=== PATIENT | female | born 1965 | race Caucasian/White ===

== ENCOUNTER 2016-04-14 09:43 | Outpatient (RCR) | payer OTHER ==
[~2016-04-14 09:43] MED LIST: ALEN35TA20 PO; AMLO2.5T; AMLO5TAB2 PO; ARPZ20T PO; ASCO500T20 PO; CALC-671; CHOL2000 PO; CLOT10TR11 PO; CPR500T PO; CRAN250C; DALF10TA PO; DULO60CA6; DVL500TEC PO; E400C PO; EST45C VG; ESTR0.9T PO; ESZO3TAB30; FESO8TAB PO; FLUC200T45 PO; FRS325T; GBPN300C PO; HYDR1TAB PO; HYDR1TAB66 PO; HYDROMORPHONE; LEVO500T69 PO; LEVO750T6 PO; LMT25T PO; LORA0.5T; LVT.1T PO; METH1TAB46 PO; METH4TAB PO; MULT-608; NACL30SP2 NS; NITR100C3 PO; OPIU1SUP RC; OXYC-12 PO; PANT40SU PO; PNT40TEC; POTA20TA15 PO; PRM25T PO; REBIF; RNT150T PO; SOLI10TA4 PO; TML.25OP OP; TMZP15C PO; TOLTA4; VNL75CCR; ZLP10T PO; [UNRECOGNIZED DRUG - CODE] PO
[2016-04-14 10:11] LABS: BASOPHILS % (AUTO) 0 % (0-10); EOSINOPHILS # (AUTO) 0.2 10^3/uL (0.0-0.3); EOSINOPHILS % (AUTO) 5 % (0-10); LYMPHOCYTES # (AUTO) 0.2 X 10^3 (1.0-4.0); LYMPHOCYTES % (AUTO) 7 % (12-44); MEAN CORPUSCULAR HEMOGLOBIN 31 PG (25-34); MEAN CORPUSCULAR HGB CONC 34 G/DL (32-36); MEAN CORPUSCULAR VOLUME 91 FL (80-99); MEAN PLATELET VOLUME 8.7 FL (7.4-10.4); MONOCYTES # (AUTO) 0.3 X 10^3 (0.0-1.0); MONOCYTES % (AUTO) 10 % (0-12); NEUTROPHILS # (AUTO) 2.5 X 10^3 (1.8-7.8); NEUTROPHILS % (AUTO) 77 % (42-75); PLATELET COUNT 252 10^3/uL (130-400); RED BLOOD COUNT 3.88 10^6/uL (4.35-5.85); RED CELL DISTRIBUTION WIDTH 12.6 % (10.0-14.5); WHITE BLOOD COUNT 3.2 10^3/uL (4.3-11.0)
[2016-04-14 10:34] LABS: ALANINE AMINOTRANSFERASE 33 U/L (0-55); ALBUMIN 3.9 G/DL (3.2-4.5); ANION GAP 9 MMOL/L (5-14); ASPARTATE AMINO TRANSFERASE 21 U/L (5-34); BILIRUBIN,TOTAL 0.3 MG/DL (0.1-1.0); BLOOD UREA NITROGEN 12 MG/DL (7-18); BUN/CREATININE RATIO 17; CALCIUM 9.2 MG/DL (8.5-10.1); CARBON DIOXIDE 23 MMOL/L (21-32); CHLORIDE 106 MMOL/L (98-107); GFR ESTIMATED > 60; GLUCOSE 110 MG/DL (70-105); POTASSIUM 4.3 MMOL/L (3.6-5.0); SODIUM 138 MMOL/L (135-145); TOTAL PROTEIN 6.4 G/DL (6.4-8.2)
== END 2016-07-13 | disposition home or self-care (01) ==
LOC: ONC 09:43
PROVIDERS: ATTEND Internal Medicine Hematology & Oncology
DX: Z08 Encounter for follow-up examination after completed treatment for malignant neoplasm (principal); Z85.3 Personal history of malignant neoplasm of breast; G35 Multiple sclerosis; I10 Essential (primary) hypertension; D69.3 Immune thrombocytopenic purpura; N31.9 Neuromuscular dysfunction of bladder, unspecified; B37.3 Candidiasis of vulva and vagina; Z90.79 Acquired absence of other genital organ(s); Z92.3 Personal history of irradiation; Z92.21 Personal history of antineoplastic chemotherapy; Z79.899 Other long term (current) drug therapy
CPT/HCPCS: 36415; 80053; 85025; 86300; 99213

== ENCOUNTER → 2016-07-21 | Outpatient (CLI) | payer OTHER ==
--- NOTE | 2016-07-21 14:22 | Diagnostic Imaging Report ---
EXAMINATION: Bilateral diagnostic mammogram with a Computer Aided Detection (CAD) system. INDICATION: Followup asymmetry along the far posterior aspect of the right breast and central aspect of the left breast. FINDINGS: The breasts are composed of heterogeneously dense parenchyma which may decrease mammographic sensitivity. There is evidence of prior lumpectomy in the right breast. There is no mass, architectural distortion, or suspicious calcification. The previously seen asymmetries bilaterally appear resolved with no suspicious mass, architectural distortion, or suspicious calcification identified. IMPRESSION: The previously seen asymmetries appear resolved at this time. No suspicious mammographic findings. An ultrasound followup is pending. ACR BI-RADS Category 0: Incomplete. (Needs additional imaging evaluation). Result letter will be mailed to the patient. Note: At least 10% of breast cancer is not imaged by mammography. Dictated by: Dictated on workstation # [id number]
--- NOTE | 2016-07-21 14:25 | Diagnostic Imaging Report ---
EXAMINATION: Bilateral breast ultrasound. INDICATION: Bilateral mammographic asymmetries and a lesion seen at the lumpectomy site at the 6 o'clock zone of the right breast. COMPARISON: 01/30/2016. FINDINGS: In the right breast at the 6 o'clock zone, a 2.8 x 1 x 2.3 cm lesion with mixed echogenicity and central fluid is seen, likely related to a seroma and scarring. It is without significant change from the prior exam. This is located at the 6 o'clock zone in the previous lumpectomy site with no other lesions seen in the right breast. The left breast demonstrates no underlying lesion. The four-quadrants and the retroareolar region in both breasts were scanned. IMPRESSION: The lumpectomy site abnormality is stable and is likely related to post operative changes. Another ultrasound followup is recommended when the patient is due for her next bilateral mammogram in July 2017. ACR BI-RADS Category 3: Probably benign findings. Dictated by: Dictated on workstation # [id number]
== END ==
LOC: RAD 09:03
PROVIDERS: ATTEND Internal Medicine Hematology & Oncology
DX: R92.8 Other abnormal and inconclusive findings on diagnostic imaging of breast (principal); C50.911 Malignant neoplasm of unspecified site of right female breast
CPT/HCPCS: 77066

== ENCOUNTER 2016-08-04 09:30 | Outpatient (RCR) | payer OTHER ==
[2016-08-04 10:04] LABS: BASOPHILS % (AUTO) 0 % (0-10); EOSINOPHILS # (AUTO) 0.3 10^3/uL (0.0-0.3); EOSINOPHILS % (AUTO) 8 % (0-10); LYMPHOCYTES # (AUTO) 0.4 X 10^3 (1.0-4.0); LYMPHOCYTES % (AUTO) 11 % (12-44); MEAN CORPUSCULAR HEMOGLOBIN 31 PG (25-34); MEAN CORPUSCULAR HGB CONC 34 G/DL (32-36); MEAN CORPUSCULAR VOLUME 90 FL (80-99); MEAN PLATELET VOLUME 8.8 FL (7.4-10.4); MONOCYTES # (AUTO) 0.4 X 10^3 (0.0-1.0); MONOCYTES % (AUTO) 12 % (0-12); NEUTROPHILS # (AUTO) 2.4 X 10^3 (1.8-7.8); NEUTROPHILS % (AUTO) 70 % (42-75); PLATELET COUNT 261 10^3/uL (130-400); RED BLOOD COUNT 4.01 10^6/uL (4.35-5.85); RED CELL DISTRIBUTION WIDTH 12.5 % (10.0-14.5); WHITE BLOOD COUNT 3.4 10^3/uL (4.3-11.0)
[2016-08-04 10:59] LABS: ALANINE AMINOTRANSFERASE 34 U/L (0-55); ALBUMIN 3.9 G/DL (3.2-4.5); ANION GAP 9 MMOL/L (5-14); ASPARTATE AMINO TRANSFERASE 27 U/L (5-34); BILIRUBIN,TOTAL 0.3 MG/DL (0.1-1.0); BLOOD UREA NITROGEN 13 MG/DL (7-18); BUN/CREATININE RATIO 17; CALCIUM 9.2 MG/DL (8.5-10.1); CARBON DIOXIDE 25 MMOL/L (21-32); CHLORIDE 107 MMOL/L (98-107); CREATININE SERUM 0.77 MG/DL (0.60-1.30); GFR ESTIMATED > 60; GLUCOSE 94 MG/DL (70-105); POTASSIUM 4.5 MMOL/L (3.6-5.0); SODIUM 141 MMOL/L (135-145); TOTAL PROTEIN 6.6 G/DL (6.4-8.2)
== END 2016-11-02 | disposition home or self-care (01) ==
LOC: ONC 09:30
PROVIDERS: ATTEND Internal Medicine Hematology & Oncology
DX: Z08 Encounter for follow-up examination after completed treatment for malignant neoplasm (principal); Z85.3 Personal history of malignant neoplasm of breast; G35 Multiple sclerosis; I10 Essential (primary) hypertension; D69.3 Immune thrombocytopenic purpura; N31.9 Neuromuscular dysfunction of bladder, unspecified; B37.3 Candidiasis of vulva and vagina; Z90.79 Acquired absence of other genital organ(s); Z92.3 Personal history of irradiation; Z92.21 Personal history of antineoplastic chemotherapy; Z79.899 Other long term (current) drug therapy
CPT/HCPCS: 36415; 80053; 85025; 86300; 99213

== ENCOUNTER 2017-01-19 09:37 | Outpatient (RCR) | payer OTHER ==
[2017-01-19 10:05] LABS: BASOPHILS % (AUTO) 0 % (0-10); EOSINOPHILS # (AUTO) 0.2 10^3/uL (0.0-0.3); EOSINOPHILS % (AUTO) 5 % (0-10); LYMPHOCYTES # (AUTO) 0.3 X 10^3 (1.0-4.0); LYMPHOCYTES % (AUTO) 11 % (12-44); MEAN CORPUSCULAR HEMOGLOBIN 31 PG (25-34); MEAN CORPUSCULAR HGB CONC 35 G/DL (32-36); MEAN CORPUSCULAR VOLUME 91 FL (80-99); MEAN PLATELET VOLUME 8.6 FL (7.4-10.4); MONOCYTES # (AUTO) 0.3 X 10^3 (0.0-1.0); MONOCYTES % (AUTO) 11 % (0-12); NEUTROPHILS # (AUTO) 2.1 X 10^3 (1.8-7.8); NEUTROPHILS % (AUTO) 73 % (42-75); PLATELET COUNT 242 10^3/uL (130-400); RED BLOOD COUNT 3.78 10^6/uL (4.35-5.85); RED CELL DISTRIBUTION WIDTH 12.3 % (10.0-14.5); WHITE BLOOD COUNT 2.8 10^3/uL (4.3-11.0)
[2017-01-19 10:54] LABS: ALANINE AMINOTRANSFERASE 30 U/L (0-55); ALBUMIN 3.8 GM/DL (3.2-4.5); ANION GAP 6 MMOL/L (5-14); ASPARTATE AMINO TRANSFERASE 21 U/L (5-34); BILIRUBIN,TOTAL 0.3 MG/DL (0.1-1.0); BLOOD UREA NITROGEN 11 MG/DL (7-18); BUN/CREATININE RATIO 15; CALCIUM 8.9 MG/DL (8.5-10.1); CARBON DIOXIDE 27 MMOL/L (21-32); CHLORIDE 107 MMOL/L (98-107); CREATININE SERUM 0.75 MG/DL (0.60-1.30); GFR ESTIMATED > 60; GLUCOSE 105 MG/DL (70-105); POTASSIUM 3.9 MMOL/L (3.6-5.0); SODIUM 140 MMOL/L (135-145); TOTAL PROTEIN 6.4 GM/DL (6.4-8.2)
== END 2017-01-26 09:28 | disposition home or self-care (01) ==
LOC: ONC 09:37
PROVIDERS: ATTEND Internal Medicine Hematology & Oncology
DX: Z08 Encounter for follow-up examination after completed treatment for malignant neoplasm (principal); Z85.3 Personal history of malignant neoplasm of breast; G35 Multiple sclerosis; I10 Essential (primary) hypertension; D69.3 Immune thrombocytopenic purpura; N31.9 Neuromuscular dysfunction of bladder, unspecified; B37.3 Candidiasis of vulva and vagina; Z90.79 Acquired absence of other genital organ(s); Z92.3 Personal history of irradiation; Z92.21 Personal history of antineoplastic chemotherapy; Z79.899 Other long term (current) drug therapy
CPT/HCPCS: 36415; 80053; 85025; 99213

== ENCOUNTER 2017-03-20 09:04 | Outpatient (RCR) | payer OTHER ==
[~2017-03-20 09:04] MED LIST changes: -CATHETER FLUSH 10 ML SYR IV PRN; -IOHEXOL 350 MG/ML 100 ML (OMNIPAQUE 350) VIAL IV ONE; -NS 100 ML (IVPB) BAG IV ONE
[2017-03-20 09:40] LABS: BASOPHILS % (AUTO) 0 % (0-10); EOSINOPHILS # (AUTO) 0.1 10^3/uL (0.0-0.3); EOSINOPHILS % (AUTO) 4 % (0-10); HEMATOCRIT 37 % (35-52); HEMOGLOBIN 12.8 G/DL (11.5-16.0); LYMPHOCYTES # (AUTO) 0.3 X 10^3 (1.0-4.0); LYMPHOCYTES % (AUTO) 9 % (12-44); MEAN CORPUSCULAR HEMOGLOBIN 32 PG (25-34); MEAN CORPUSCULAR HGB CONC 35 G/DL (32-36); MEAN CORPUSCULAR VOLUME 91 FL (80-99); MONOCYTES # (AUTO) 0.4 X 10^3 (0.0-1.0); MONOCYTES % (AUTO) 12 % (0-12); NEUTROPHILS # (AUTO) 2.7 X 10^3 (1.8-7.8); NEUTROPHILS % (AUTO) 76 % (42-75); PLATELET COUNT 222 10^3/uL (130-400); RED BLOOD COUNT 4.06 10^6/uL (4.35-5.85); RED CELL DISTRIBUTION WIDTH 12.1 % (10.0-14.5); WHITE BLOOD COUNT 3.6 10^3/uL (4.3-11.0)
[2017-03-20 10:11] LABS: ALANINE AMINOTRANSFERASE 38 U/L (0-55); ALBUMIN 3.9 GM/DL (3.2-4.5); ALKALINE PHOSPHATASE 87 U/L (40-136); BILIRUBIN,TOTAL 0.4 MG/DL (0.1-1.0); BUN/CREATININE RATIO 17; CALCIUM 9.3 MG/DL (8.5-10.1); CARBON DIOXIDE 26 MMOL/L (21-32); CHLORIDE 105 MMOL/L (98-107); CREATININE SERUM 0.71 MG/DL (0.60-1.30); GFR ESTIMATED > 60; GLUCOSE 94 MG/DL (70-105); SODIUM 140 MMOL/L (135-145); TOTAL PROTEIN 6.7 GM/DL (6.4-8.2)
== END 2017-06-18 | disposition home or self-care (01) ==
LOC: ONC 09:04
PROVIDERS: ATTEND Internal Medicine Hematology & Oncology
DX: Z08 Encounter for follow-up examination after completed treatment for malignant neoplasm (principal); Z85.3 Personal history of malignant neoplasm of breast; D69.3 Immune thrombocytopenic purpura; G35 Multiple sclerosis; I10 Essential (primary) hypertension; N31.9 Neuromuscular dysfunction of bladder, unspecified; Z90.79 Acquired absence of other genital organ(s); Z92.3 Personal history of irradiation; Z92.21 Personal history of antineoplastic chemotherapy; Z79.899 Other long term (current) drug therapy
CPT/HCPCS: 80053; 85025

== ENCOUNTER → 2017-03-20 | Outpatient (CLI) | payer OTHER ==
[~2017-03-20] MED LIST changes: +CATHETER FLUSH 10 ML SYR IV PRN; +IOHEXOL 350 MG/ML 100 ML (OMNIPAQUE 350) VIAL IV ONE; +NS 100 ML (IVPB) BAG IV ONE
--- NOTE | 2017-03-20 11:25 | Diagnostic Imaging Report ---
PROCEDURE: CT chest with contrast only. TECHNIQUE: Multiple contiguous axial images were obtained through the chest after administration of intravenous contrast. INDICATION: Breast cancer. Right breast pain. COMPARISON: 09/04/2009. FINDINGS: The right breast demonstrates suggestion of a chronic seroma in the inferior aspect. This is slightly smaller compared to the 2010 exam. There is no mediastinal mass or significantly enlarged lymph node. No hilar lymphadenopathy. No axillary lymphadenopathy. The heart size is normal. The thoracic aorta is normal in caliber. There is no pleural or pericardial effusion. There are nonspecific mild groundglass opacities seen in the upper lobes which could relate to mild atelectasis or pneumonitis. No significant consolidation, mass, or suspicious pulmonary nodule is seen otherwise. There is a small to moderate hiatal hernia. Diffuse hepatic steatosis is seen. The osseous structures appear grossly unremarkable. IMPRESSION: 1. Chronic seroma in the inferior aspect of the right breast is suggested, smaller compared to the 2010 exam. A dedicated diagnostic mammogram and ultrasound of the right breast would be recommended to evaluate the right breast firmness. 2. Small patchy areas of groundglass opacities in the upper lobes are probably related to atelectasis or mild nonspecific pneumonitis. 3. Hepatic steatosis. Dictated by: Dictated on workstation # [id number]
== END ==
LOC: RAD 10:05
PROVIDERS: ATTEND Internal Medicine Hematology & Oncology
DX: C50.919 Malignant neoplasm of unspecified site of unspecified female breast (principal); K76.0 Fatty (change of) liver, not elsewhere classified
CPT/HCPCS: 71260

== ENCOUNTER 2017-06-21 23:59 | Emergency (ER) | payer OTHER ==
[~2017-06-21] VITALS: Ht 167.6 cm; Wt 74.8 kg
[2017-06-22] MEDS ORDERED: AMIT10TA6 (00:12)
[2017-06-22] MEDS ORDERED: AMIT100T2 (00:12)
[2017-06-22] MEDS ORDERED: OLAN5TAB25 (00:12)
--- NOTE | 2017-06-22 00:18 | ED Psychosocial ---
General Chief Complaint: Overdose Stated Complaint: POSS OVERDOSE EVENING MED Source: patient Exam Limitations: no limitations History of Present Illness Date Seen by Provider: Jun 22, 2017 Time Seen by Provider: 00:07 Initial Comments Patient presents to the ER with her significant other chief complaint that just prior to arrival she thinks she might of taken a second dose of her amitriptyline. She typically takes 200 mg at night for sleep since she was having a hard time sleeping she says she went ahead and took another dose. She' s not 100% certain that she took twice the dose however. She denies low mood, suicidal ideation, suicide attempts in the past. She says she just wasn't thinking and couldn't remember should taken or not but after they counted her pills but think that she might of taken a dose prior. She's not having any nausea, dizziness, jitteriness. She does have a history of multiple sclerosis for several years and has an indwelling Ruano catheter. Allergies and Home Medications Allergies Coded Allergies: fentanyl (Verified Allergy, Intermediate, 10/09/12) Sulfa (Sulfonamide Antibiotics) (Unverified Allergy, Unknown, 09/04/09) pregabalin (Verified Allergy, Unknown, MS ATTACK, 03/20/17) quetiapine (Verified Allergy, Unknown, 07/29/05) Home Medications Amitriptyline HCl 10 Mg Tablet, (Reported) Amitriptyline HCl 100 Mg Tablet, (Reported) Ascorbic Acid 500 Mg Tablet, 500 MG PO TID, (Reported) Calcium Carbonate/Vitamin D3 1 Each Tablet, (Reported) Cholecalciferol 2,000 Unit Capsule, 2,000 UNIT PO DAILY, (Reported) Estrogens,Conjugated 0.9 Mg Tablet, 0.9 MG PO DAILY, (Reported) Fingolimod Hydrochloride 0.5 Mg Capsule, 0.5 MG PO DAILY, (Reported) Multivitamins 1 Tab Tablet, (Reported) Olanzapine 5 Mg Tablet, (Reported) Pantoprazole Sodium 40 Mg Suspdr.pkt, 40 MG PO DAILY, (Reported) Constitutional: No chills, No diaphoresis EENTM: No eye pain, No tearing Respiratory: No cough, No short of breath Cardiovascular: No chest pain, No palpitations Gastrointestinal: No abdominal pain, No constipation, No diarrhea, No nausea Genitourinary: No discharge, No dysuria : No Past Alrstij-Abcbtw-Mbpcrg Hx Patient Social History Recent Foreign Travel: No Contact w/Someone Who Travel: No Immunizations Up To Date Date of Pneumonia Vaccine: May 08, 2009 Date of Influenza Vaccine: Jan 20, 2012 Reproductive System Hx Reproductive Disorders: No Sexually Transmitted Disease: 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 Genitourinary Genitourinary Disorders: UTI-Chronic Cancer Cancer: Breast Psychosocial Behavioral Health Disorders: Bipolar Physical Exam Vital Signs Vital Signs - First Documented 06/22/17 00:05 Temp 98.1 Pulse 96 Resp 18 B/P (MAP) 139/89 (106) Pulse Ox 99 O2 Delivery Room Air Capillary Refill : General Appearance: WD/WN, other (anxious) HEENT: PERRL/EOMI, pharynx normal, other (right eye amblyopia) Neck: full range of motion, normal inspection Respiratory: no respiratory distress, no accessory muscle use Cardiovascular: no edema, no JVD Peripheral Pulses: 2+ Radial Pulses (R), 2+ Radial Pulses (L) Gastrointestinal: non tender, soft Extremities: normal inspection, no pedal edema Neurologic/Psychiatric: alert, normal mood/affect, oriented x 3 Behavior/Eye Contact: cooperative, good eye contact, normal speech, avoids eye contact Thoughts/Hallucinations: normal thought pattern, no apparent hallucination Skin: normal color, warm/dry Progress/Results/Core Measures Results/Orders My Orders Orders - MAYUR BEJARANO Ekg Tracing (06/22/17 00:07) Ekg Tracing (06/22/17 01:53) Vital Signs/I&O Vital Sign - Last 12Hours 06/22/17 06/22/17 00:05 01:15 Temp 98.1 Pulse 96 89 Resp 18 17 B/P (MAP) 139/89 (106) 140/84 (102) Pulse Ox 99 97 O2 Delivery Room Air Room Air Progress Note : Time: 00:19 Progress Note Likely an accidental over ingestion. We have called poison control and their recommendation is to get an EKG and the QRS is less than 100 monitor her for seizures for a period of 2 hours. If it goes above 100 give 2 A of bicarbonate over 10 minutes and then recheck EKG. The patient's QRS is 90 ms. ECG Initial ECG Impression Date: Jun 22, 2017 Initial ECG Impression Time: 00:09 Initial ECG Rate: 91 Initial ECG Rhythm: Normal Sinus Initial ECG Intervals: QRS (90) Initial ECG Impression: Normal Initial ECG Comparisson: No Previous ECG Available Comment No T-wave elevation or depression. No QRS prolongation. EKG : EKG Time: 01:54 Rate: 89 Rhythm: Normal Sinus Intervals: Normal ECG Comparisson: Unchanged ECG Impression: Normal Comment QRS duration of 92 ms. No T-wave elevation or depression. Departure Impression Impression: Primary Impression: TCA (tricyclic antidepressant) overdose of undetermined intent Qualified Codes: T43.014A - Poisoning by tricyclic antidepressants, undetermined, initial encounter Disposition: HOME, SELF-CARE Condition: Stable Departure-Patient Inst. Decision time for Depature: 02:06 Referrals: VIVIAN CAMARA MD (PCP/Family) Primary Care Physician Patient Instructions: Amitriptyline Add. Discharge Instructions: Get some rest tonight. Drink plenty of fluids. Follow-up with your primary care physician as needed for any new symptoms. All discharge instructions reviewed with patient and/or family. Voiced understanding. Copy Copies To 1: VIVIAN CAMARA MD, TITUS J Jun 22, 2017 00:18
[2017-06-22 01:15] VITALS: BP 140/84
[2017-06-22 02:12] VITALS: BP 140/86
== END 2017-06-22 02:09 | disposition home or self-care (01) ==
LOC: EDUNIT# 23:59 → ER 06-22 00:02
DX: T43.014A Poisoning by tricyclic antidepressants, undetermined, initial encounter (principal); F31.9 Bipolar disorder, unspecified; Z90.710 Acquired absence of both cervix and uterus; Z88.2 Allergy status to sulfonamides; Z88.1 Allergy status to other antibiotic agents; Z88.8 Allergy status to other drugs, medicaments and biological substances
CPT/HCPCS: 93005

== ENCOUNTER → 2017-07-27 | Outpatient (CLI) | payer OTHER ==
[~2017-07-27] MED LIST changes: +AMIT100T2; +AMIT10TA6; +OLAN5TAB25
--- NOTE | 2017-07-27 19:37 | Diagnostic Imaging Report ---
INDICATION: Right breast carcinoma, status post lumpectomy. The study is performed for followup. COMPARISON: Correlation is made with prior studies from 07/21/2016 and 01/08/2016. The current study was also evaluated with a Computer Aided Detection (CAD) system. FINDINGS: Both breasts remain heterogeneously dense, limiting the sensitivity of mammography. The overall parenchymal pattern is stable. No dominant mass or malignant appearing microcalcifications are seen. The axillae are unremarkable. IMPRESSION: Stable bilateral mammograms with no mammographic features suspicious for malignancy identified. Patient will undergo right breast ultrasound to further evaluate previously seen postoperative seroma in the 6 o'clock location of the right breast. ACR BI-RADS Category 0: Incomplete. (Needs additional imaging evaluation). Result letter will be mailed to the patient. Note: At least 10% of breast cancer is not imaged by mammography. Dictated by: Dictated on workstation # [id number]
--- NOTE | 2017-07-27 19:50 | Diagnostic Imaging Report ---
INDICATION: Status post right lumpectomy and seroma. Study is performed for followup. Correlation is made with prior ultrasound from 07/21/2016. Sonographic interrogation of the 6 o'clock location of the right breast was performed, correlating with the lumpectomy site. Mixed echogenicity with central fluid at this location is again noted but appears smaller when compared with prior exam at approximately 1.9 x 2.1 cm compared with 2.5 x 2.3 cm. No new abnormality is identified. IMPRESSION: Decrease in size of the mixed echogenicity at the 6 o'clock location of the right breast when compared with examination one year earlier, most suggestive of a postoperative seroma. Continued followup could be obtained to confirm clearing. ACR BI-RADS Category 3: Probably benign findings. Dictated by: Dictated on workstation # [id number]
== END ==
LOC: RAD 09:36
PROVIDERS: ATTEND Internal Medicine Hematology & Oncology
DX: N64.89 Other specified disorders of breast (principal); Z85.3 Personal history of malignant neoplasm of breast; Z90.12 Acquired absence of left breast and nipple
CPT/HCPCS: 77066

== ENCOUNTER 2017-08-03 10:10 | Outpatient (RCR) | payer OTHER ==
[2017-08-03 10:25] LABS: BASOPHILS % (AUTO) 0 % (0-10); EOSINOPHILS # (AUTO) 0.2 10^3/uL (0.0-0.3); EOSINOPHILS % (AUTO) 8 % (0-10); HEMATOCRIT 37 % (35-52); HEMOGLOBIN 12.8 G/DL (11.5-16.0); LYMPHOCYTES # (AUTO) 0.2 X 10^3 (1.0-4.0); LYMPHOCYTES % (AUTO) 10 % (12-44); MEAN CORPUSCULAR HEMOGLOBIN 32 PG (25-34); MEAN CORPUSCULAR HGB CONC 35 G/DL (32-36); MEAN CORPUSCULAR VOLUME 92 FL (80-99); MEAN PLATELET VOLUME 9.5 FL (7.4-10.4); MONOCYTES # (AUTO) 0.3 X 10^3 (0.0-1.0); MONOCYTES % (AUTO) 15 % (0-12); NEUTROPHILS # (AUTO) 1.2 X 10^3 (1.8-7.8); NEUTROPHILS % (AUTO) 66 % (42-75); PLATELET COUNT 218 10^3/uL (130-400); RED BLOOD COUNT 3.98 10^6/uL (4.35-5.85); RED CELL DISTRIBUTION WIDTH 11.9 % (10.0-14.5); WHITE BLOOD COUNT 1.8 10^3/uL (4.3-11.0)
[2017-08-03 10:47] LABS: ALANINE AMINOTRANSFERASE 32 U/L (0-55); ALKALINE PHOSPHATASE 106 U/L (40-136); BILIRUBIN,TOTAL 0.4 MG/DL (0.1-1.0); BUN/CREATININE RATIO 13; CALCIUM 9.4 MG/DL (8.5-10.1); CARBON DIOXIDE 25 MMOL/L (21-32); CHLORIDE 110 MMOL/L (98-107); CREATININE SERUM 0.71 MG/DL (0.60-1.30); GFR ESTIMATED > 60; GLUCOSE 111 MG/DL (70-105); POTASSIUM 4.4 MMOL/L (3.6-5.0); SODIUM 140 MMOL/L (135-145); TOTAL PROTEIN 6.8 GM/DL (6.4-8.2)
== END 2017-11-01 | disposition home or self-care (01) ==
LOC: ONC 10:10
PROVIDERS: ATTEND Internal Medicine Hematology & Oncology
DX: Z08 Encounter for follow-up examination after completed treatment for malignant neoplasm (principal); Z85.3 Personal history of malignant neoplasm of breast; G35 Multiple sclerosis; D72.819 Decreased white blood cell count, unspecified; R92.8 Other abnormal and inconclusive findings on diagnostic imaging of breast; I10 Essential (primary) hypertension; K21.9 Gastro-esophageal reflux disease without esophagitis; N31.9 Neuromuscular dysfunction of bladder, unspecified; D69.59 Other secondary thrombocytopenia; F31.9 Bipolar disorder, unspecified
CPT/HCPCS: 80053; 85025; 99213

== ENCOUNTER 2017-09-03 06:00 | Outpatient (RCR) | payer OTHER | END 2017-09-05 | disposition home or self-care (01) | LOC: CR3 06:00 | PROVIDERS: ATTEND Internal Medicine | DX: Z29.8 Encounter for other specified prophylactic measures (principal) ==

== ENCOUNTER 2017-10-05 09:57 | Outpatient (RCR) | payer OTHER | END 2017-10-07 | disposition home or self-care (01) | LOC: CR3 09:57 | PROVIDERS: ATTEND Internal Medicine | DX: Z29.8 Encounter for other specified prophylactic measures (principal) ==

== ENCOUNTER 2017-11-05 06:00 | Outpatient (RCR) | payer OTHER | END 2017-11-07 | disposition home or self-care (01) | LOC: CR3 06:00 | PROVIDERS: ATTEND Internal Medicine | DX: Z29.8 Encounter for other specified prophylactic measures (principal) ==

== ENCOUNTER → 2017-12-01 | Outpatient (RCR) | payer OTHER ==
[2017-12-01 09:10] LABS: BASOPHILS % (AUTO) 1 % (0-10); EOSINOPHILS # (AUTO) 0.2 10^3/uL (0.0-0.3); EOSINOPHILS % (AUTO) 4 % (0-10); HEMATOCRIT 36 % (35-52); HEMOGLOBIN 12.6 G/DL (11.5-16.0); LYMPHOCYTES # (AUTO) 0.3 X 10^3 (1.0-4.0); LYMPHOCYTES % (AUTO) 8 % (12-44); MEAN CORPUSCULAR HEMOGLOBIN 32 PG (25-34); MEAN CORPUSCULAR HGB CONC 35 G/DL (32-36); MEAN CORPUSCULAR VOLUME 90 FL (80-99); MEAN PLATELET VOLUME 8.8 FL (7.4-10.4); MONOCYTES # (AUTO) 0.4 X 10^3 (0.0-1.0); MONOCYTES % (AUTO) 12 % (0-12); NEUTROPHILS # (AUTO) 2.8 X 10^3 (1.8-7.8); NEUTROPHILS % (AUTO) 75 % (42-75); PLATELET COUNT 295 10^3/uL (130-400); RED BLOOD COUNT 3.96 10^6/uL (4.35-5.85); RED CELL DISTRIBUTION WIDTH 11.9 % (10.0-14.5); WHITE BLOOD COUNT 3.7 10^3/uL (4.3-11.0)
[2017-12-01 09:32] LABS: ALANINE AMINOTRANSFERASE 31 U/L (0-55); ALBUMIN 4.1 GM/DL (3.2-4.5); ALKALINE PHOSPHATASE 102 U/L (40-136); BILIRUBIN,TOTAL 0.3 MG/DL (0.1-1.0); BUN/CREATININE RATIO 20; CALCIUM 10.3 MG/DL (8.5-10.1); CARBON DIOXIDE 24 MMOL/L (21-32); CHLORIDE 105 MMOL/L (98-107); CREATININE SERUM 0.79 MG/DL (0.60-1.30); GFR ESTIMATED > 60; GLUCOSE 105 MG/DL (70-105); POTASSIUM 4.7 MMOL/L (3.6-5.0); SODIUM 139 MMOL/L (135-145); TOTAL PROTEIN 7.1 GM/DL (6.4-8.2)
== END | disposition home or self-care (01) ==
LOC: ONC 08:58
PROVIDERS: ATTEND Internal Medicine Hematology & Oncology
DX: Z08 Encounter for follow-up examination after completed treatment for malignant neoplasm (principal); Z85.3 Personal history of malignant neoplasm of breast; G35 Multiple sclerosis; D72.819 Decreased white blood cell count, unspecified; R92.8 Other abnormal and inconclusive findings on diagnostic imaging of breast; I10 Essential (primary) hypertension; K21.9 Gastro-esophageal reflux disease without esophagitis; N31.9 Neuromuscular dysfunction of bladder, unspecified; D69.59 Other secondary thrombocytopenia; F31.9 Bipolar disorder, unspecified
CPT/HCPCS: 36415; 80053; 85025; 99213

== ENCOUNTER 2017-12-07 10:19 | Outpatient (RCR) | payer OTHER | END 2017-12-09 | disposition home or self-care (01) | LOC: CR3 10:19 | PROVIDERS: ATTEND Internal Medicine | DX: Z29.8 Encounter for other specified prophylactic measures (principal) ==

== ENCOUNTER 2018-01-01 06:22 | Outpatient (RCR) | payer OTHER | END 2018-01-09 | disposition home or self-care (01) | LOC: CR3 06:22 | PROVIDERS: ATTEND Internal Medicine | DX: Z29.8 Encounter for other specified prophylactic measures (principal) ==

== ENCOUNTER 2018-02-08 10:25 | Outpatient (RCR) | payer OTHER | END 2018-02-10 | disposition home or self-care (01) | LOC: CR3 10:25 | PROVIDERS: ATTEND Internal Medicine | DX: Z29.8 Encounter for other specified prophylactic measures (principal) ==

== ENCOUNTER 2018-03-11 06:00 | Outpatient (RCR) | payer OTHER | END 2018-03-13 | disposition home or self-care (01) | LOC: CR3 06:00 | PROVIDERS: ATTEND Internal Medicine | DX: Z29.8 Encounter for other specified prophylactic measures (principal) ==

== ENCOUNTER 2018-04-15 10:00 | Outpatient (RCR) | payer OTHER | END 2018-04-17 | disposition home or self-care (01) | LOC: CR3 10:00 | PROVIDERS: ATTEND Internal Medicine | DX: Z29.8 Encounter for other specified prophylactic measures (principal) ==

== ENCOUNTER 2018-05-13 06:00 | Outpatient (RCR) | payer OTHER | END 2018-05-19 | disposition home or self-care (01) | LOC: CR3 06:00 | PROVIDERS: ATTEND Internal Medicine | DX: Z29.8 Encounter for other specified prophylactic measures (principal) ==

== ENCOUNTER 2018-05-31 08:56 | Outpatient (RCR) | payer OTHER ==
[2018-05-31 10:06] LABS: BASOPHILS % (AUTO) 0 % (0-10); EOSINOPHILS # (AUTO) 0.1 10^3/uL (0.0-0.3); EOSINOPHILS % (AUTO) 5 % (0-10); HEMATOCRIT 38 % (35-52); LYMPHOCYTES # (AUTO) 0.3 X 10^3 (1.0-4.0); LYMPHOCYTES % (AUTO) 10 % (12-44); MEAN CORPUSCULAR HEMOGLOBIN 31 PG (25-34); MEAN CORPUSCULAR HGB CONC 35 G/DL (32-36); MEAN CORPUSCULAR VOLUME 90 FL (80-99); MONOCYTES # (AUTO) 0.3 X 10^3 (0.0-1.0); MONOCYTES % (AUTO) 12 % (0-12); NEUTROPHILS # (AUTO) 1.9 X 10^3 (1.8-7.8); NEUTROPHILS % (AUTO) 73 % (42-75); PLATELET COUNT 249 10^3/uL (130-400); RED CELL DISTRIBUTION WIDTH 12.4 % (10.0-14.5); WHITE BLOOD COUNT 2.6 10^3/uL (4.3-11.0)
[2018-05-31 10:34] LABS: ALANINE AMINOTRANSFERASE 30 U/L (0-55); ALKALINE PHOSPHATASE 85 U/L (40-136); BILIRUBIN,TOTAL 0.3 MG/DL (0.1-1.0); BUN/CREATININE RATIO 17; CALCIUM 9.3 MG/DL (8.5-10.1); CARBON DIOXIDE 22 MMOL/L (21-32); CHLORIDE 106 MMOL/L (98-107); CREATININE SERUM 0.69 MG/DL (0.60-1.30); GFR ESTIMATED > 60; GLUCOSE 94 MG/DL (70-105); POTASSIUM 4.2 MMOL/L (3.6-5.0); SODIUM 139 MMOL/L (135-145); TOTAL PROTEIN 6.7 GM/DL (6.4-8.2)
== END 2018-08-29 | disposition home or self-care (01) ==
LOC: ONC 08:56
PROVIDERS: ATTEND Internal Medicine Hematology & Oncology
DX: Z08 Encounter for follow-up examination after completed treatment for malignant neoplasm (principal); Z85.3 Personal history of malignant neoplasm of breast; G35 Multiple sclerosis; D72.819 Decreased white blood cell count, unspecified; R92.8 Other abnormal and inconclusive findings on diagnostic imaging of breast; I10 Essential (primary) hypertension; K21.9 Gastro-esophageal reflux disease without esophagitis; N31.9 Neuromuscular dysfunction of bladder, unspecified; D69.59 Other secondary thrombocytopenia; F31.9 Bipolar disorder, unspecified
CPT/HCPCS: 80053; 85025; 99213

== ENCOUNTER 2018-06-17 08:00 | Outpatient (RCR) | payer OTHER | END 2018-06-19 | disposition home or self-care (01) | LOC: CR3 08:00 | PROVIDERS: ATTEND Internal Medicine | DX: Z29.8 Encounter for other specified prophylactic measures (principal) ==

== ENCOUNTER 2018-07-19 09:14 | Outpatient (RCR) | payer OTHER | END 2018-07-21 | disposition home or self-care (01) | LOC: CR3 09:14 | PROVIDERS: ATTEND Internal Medicine | DX: Z29.8 Encounter for other specified prophylactic measures (principal) ==

== ENCOUNTER → 2018-07-28 | Outpatient (CLI) | payer OTHER ==
--- NOTE | 2018-07-28 19:08 | Diagnostic Imaging Report ---
INDICATION: Right breast carcinoma. COMPARISON: Correlation is made with prior mammograms from 07/27/2017 and 07/21/2016. TECHNIQUE: 2D and 3D bilateral diagnostic mammography was performed with computer-aided detection (CAD) system. FINDINGS: Both breasts remain heterogeneously dense, limiting the sensitivity of mammography. Overall parenchymal pattern appears to be stable. No new mass or malignant appearing microcalcifications are seen. The axillae are unremarkable. IMPRESSION: Stable bilateral mammograms. Ultrasound of the right breast to further evaluate previously noted seroma is recommended and will be performed today. ACR BI-RADS Category 0: Incomplete. (Needs additional imaging evaluation). Result letter will be mailed to the patient. Note: At least 10% of breast cancer is not imaged by mammography. Dictated by: Dictated on workstation # [id number]
--- NOTE | 2018-07-28 19:12 | Diagnostic Imaging Report ---
INDICATION: Right breast carcinoma status post lumpectomy. Patient has a seroma in the inferior right breast. This study is performed for follow-up. Correlation is made with prior exam from 07/27/2017. FINDINGS: Sonographic interrogation of the inferior right breast was performed. The small fluid collection at the 6 o'clock location appears stable at 2.1 x 0.9 x 1.9 cm. This is similar to prior study. No new abnormality is detected. IMPRESSION: Stable postoperative fluid collection at the 6 o'clock location of the right breast when compared with exam one year earlier. ACR BI-RADS Category 2: Benign findings. Dictated by: Dictated on workstation # [id number]
== END ==
LOC: RAD 14:01
PROVIDERS: ATTEND Internal Medicine Hematology & Oncology
DX: C50.911 Malignant neoplasm of unspecified site of right female breast (principal); M96.843 Postprocedural seroma of a musculoskeletal structure following other procedure; Z98.890 Other specified postprocedural states
CPT/HCPCS: 77066

== ENCOUNTER 2018-08-19 08:00 | Outpatient (RCR) | payer OTHER | END 2018-08-26 | disposition home or self-care (01) | LOC: CR3 08:00 | PROVIDERS: ATTEND Internal Medicine | DX: Z29.8 Encounter for other specified prophylactic measures (principal) ==

== ENCOUNTER 2018-09-20 09:14 | Outpatient (RCR) | payer OTHER | END 2018-09-25 | disposition home or self-care (01) | LOC: CR3 09:14 | PROVIDERS: ATTEND Internal Medicine | DX: Z29.8 Encounter for other specified prophylactic measures (principal) ==

== ENCOUNTER 2018-10-25 10:23 | Outpatient (RCR) | payer OTHER | END 2018-10-30 | disposition home or self-care (01) | LOC: CR3 10:23 | PROVIDERS: ATTEND Internal Medicine | DX: Z29.8 Encounter for other specified prophylactic measures (principal) ==

== ENCOUNTER 2018-11-15 08:55 | Outpatient (RCR) | payer OTHER ==
[2018-11-15 09:02] LABS: BASOPHILS % (AUTO) 1 % (0-10); EOSINOPHILS # (AUTO) 0.1 10^3/uL (0.0-0.3); EOSINOPHILS % (AUTO) 4 % (0-10); HEMATOCRIT 37 % (35-52); HEMOGLOBIN 12.5 G/DL (11.5-16.0); LYMPHOCYTES # (AUTO) 0.3 X 10^3 (1.0-4.0); LYMPHOCYTES % (AUTO) 10 % (12-44); MEAN CORPUSCULAR HEMOGLOBIN 31 PG (25-34); MEAN CORPUSCULAR HGB CONC 34 G/DL (32-36); MEAN CORPUSCULAR VOLUME 92 FL (80-99); MEAN PLATELET VOLUME 9.3 FL (7.4-10.4); MONOCYTES # (AUTO) 0.3 X 10^3 (0.0-1.0); MONOCYTES % (AUTO) 10 % (0-12); NEUTROPHILS # (AUTO) 2.4 X 10^3 (1.8-7.8); NEUTROPHILS % (AUTO) 75 % (42-75); PLATELET COUNT 210 10^3/uL (130-400); RED CELL DISTRIBUTION WIDTH 12.3 % (10.0-14.5); WHITE BLOOD COUNT 3.2 10^3/uL (4.3-11.0)
[2018-11-15 09:08] LABS: BASOPHILS % (AUTO) 1 % (0-10); EOSINOPHILS # (AUTO) 0.1 10^3/uL (0.0-0.3); EOSINOPHILS % (AUTO) 4 % (0-10); HEMATOCRIT 37 % (35-52); HEMOGLOBIN 12.5 G/DL (11.5-16.0); LYMPHOCYTES # (AUTO) 0.3 X 10^3 (1.0-4.0); LYMPHOCYTES % (AUTO) 10 % (12-44); MEAN CORPUSCULAR HEMOGLOBIN 31 PG (25-34); MEAN CORPUSCULAR HGB CONC 34 G/DL (32-36); MEAN CORPUSCULAR VOLUME 92 FL (80-99); MEAN PLATELET VOLUME 9.3 FL (7.4-10.4); MONOCYTES # (AUTO) 0.3 X 10^3 (0.0-1.0); MONOCYTES % (AUTO) 10 % (0-12); NEUTROPHILS # (AUTO) 2.4 X 10^3 (1.8-7.8); NEUTROPHILS % (AUTO) 75 % (42-75); PLATELET COUNT 210 10^3/uL (130-400); RED CELL DISTRIBUTION WIDTH 12.3 % (10.0-14.5); WHITE BLOOD COUNT 3.2 10^3/uL (4.3-11.0)
[2018-11-15 09:22] LABS: ALANINE AMINOTRANSFERASE 35 U/L (0-55); ALBUMIN 4.1 GM/DL (3.2-4.5); ALKALINE PHOSPHATASE 93 U/L (40-136); BILIRUBIN,TOTAL 0.3 MG/DL (0.1-1.0); BUN/CREATININE RATIO 13; CALCIUM 9.8 MG/DL (8.5-10.1); CARBON DIOXIDE 24 MMOL/L (21-32); CHLORIDE 104 MMOL/L (98-107); CHOLESTEROL 163 MG/DL (< 200); CREATININE SERUM 0.78 MG/DL (0.60-1.30); GFR ESTIMATED > 60; GLUCOSE 102 MG/DL (70-105); HDL CHOLESTEROL 68 MG/DL (40-60); POTASSIUM 3.5 MMOL/L (3.6-5.0); SODIUM 139 MMOL/L (135-145); TOTAL PROTEIN 6.8 GM/DL (6.4-8.2); TRIGLYCERIDES 201 MG/DL (<150); VLDL CHOLESTEROL 40 MG/DL (5-40)
[2018-11-15 09:37] LABS: ALANINE AMINOTRANSFERASE 35 U/L (0-55); ALBUMIN 4.1 GM/DL (3.2-4.5); ALKALINE PHOSPHATASE 93 U/L (40-136); BILIRUBIN,TOTAL 0.3 MG/DL (0.1-1.0); BUN/CREATININE RATIO 13; CALCIUM 9.8 MG/DL (8.5-10.1); CARBON DIOXIDE 24 MMOL/L (21-32); CHLORIDE 104 MMOL/L (98-107); CREATININE SERUM 0.78 MG/DL (0.60-1.30); GFR ESTIMATED > 60; GLUCOSE 102 MG/DL (70-105); POTASSIUM 3.5 MMOL/L (3.6-5.0); SODIUM 139 MMOL/L (135-145); TOTAL PROTEIN 6.8 GM/DL (6.4-8.2)
== END 2019-02-13 | disposition home or self-care (01) ==
LOC: ONC 08:55
PROVIDERS: ATTEND Internal Medicine Hematology & Oncology
DX: Z08 Encounter for follow-up examination after completed treatment for malignant neoplasm (principal); Z85.3 Personal history of malignant neoplasm of breast; G35 Multiple sclerosis; D72.819 Decreased white blood cell count, unspecified; R92.8 Other abnormal and inconclusive findings on diagnostic imaging of breast; I10 Essential (primary) hypertension; K21.9 Gastro-esophageal reflux disease without esophagitis; N31.9 Neuromuscular dysfunction of bladder, unspecified; D69.59 Other secondary thrombocytopenia; F31.9 Bipolar disorder, unspecified
CPT/HCPCS: 36415; 80053; 80061; 84443; 85025; 99213

== ENCOUNTER 2018-11-29 09:29 | Outpatient (RCR) | payer OTHER | END 2018-12-01 | disposition home or self-care (01) | LOC: CR3 09:29 | PROVIDERS: ATTEND Internal Medicine | DX: Z01.89 Encounter for other specified special examinations (principal); Z53.8 Procedure and treatment not carried out for other reasons | CPT/HCPCS: 80053; 80061; 84443 ==

== ENCOUNTER 2018-12-31 06:09 | Outpatient (RCR) | payer OTHER | END 2019-01-05 | disposition home or self-care (01) | LOC: CR3 06:09 | PROVIDERS: ATTEND Internal Medicine | DX: Z29.8 Encounter for other specified prophylactic measures (principal) ==

== ENCOUNTER 2019-02-07 13:14 | Outpatient (RCR) | payer OTHER | END 2019-02-12 | disposition home or self-care (01) | LOC: CR3 13:14 | PROVIDERS: ATTEND Internal Medicine | DX: Z29.8 Encounter for other specified prophylactic measures (principal) ==

== ENCOUNTER 2019-03-10 06:00 | Outpatient (RCR) | payer OTHER | END 2019-03-16 | disposition home or self-care (01) | LOC: CR3 06:00 | PROVIDERS: ATTEND Internal Medicine | DX: Z29.8 Encounter for other specified prophylactic measures (principal) ==

== ENCOUNTER 2019-04-14 06:00 | Outpatient (RCR) | payer OTHER | END 2019-04-16 | disposition home or self-care (01) | LOC: CR3 06:00 | PROVIDERS: ATTEND Internal Medicine | DX: Z29.8 Encounter for other specified prophylactic measures (principal) ==

== ENCOUNTER → 2019-05-16 | Outpatient (CLI) | payer OTHER ==
[2019-05-16 09:14] LABS: BASOPHILS % (AUTO) 0 % (0-10); EOSINOPHILS # (AUTO) 0.2 10^3/uL (0.0-0.3); EOSINOPHILS % (AUTO) 5 % (0-10); HEMATOCRIT 37 % (35-52); HEMOGLOBIN 12.5 G/DL (11.5-16.0); LYMPHOCYTES # (AUTO) 0.4 X 10^3 (1.0-4.0); LYMPHOCYTES % (AUTO) 14 % (12-44); MEAN CORPUSCULAR HEMOGLOBIN 31 PG (25-34); MEAN CORPUSCULAR HGB CONC 34 G/DL (32-36); MEAN CORPUSCULAR VOLUME 91 FL (80-99); MEAN PLATELET VOLUME 9.1 FL (7.4-10.4); MONOCYTES # (AUTO) 0.4 X 10^3 (0.0-1.0); MONOCYTES % (AUTO) 12 % (0-12); NEUTROPHILS # (AUTO) 2.1 X 10^3 (1.8-7.8); NEUTROPHILS % (AUTO) 69 % (42-75); PLATELET COUNT 275 10^3/uL (130-400); RED CELL DISTRIBUTION WIDTH 12.3 % (10.0-14.5)
[2019-05-16 09:30] LABS: ALANINE AMINOTRANSFERASE 23 U/L (0-55); ALKALINE PHOSPHATASE 100 U/L (40-136); BILIRUBIN,TOTAL 0.3 MG/DL (0.1-1.0); BUN/CREATININE RATIO 16; CALCIUM 9.2 MG/DL (8.5-10.1); CARBON DIOXIDE 23 MMOL/L (21-32); CHLORIDE 106 MMOL/L (98-107); CREATININE SERUM 0.77 MG/DL (0.60-1.30); GFR ESTIMATED > 60; GLUCOSE 101 MG/DL (70-105); POTASSIUM 3.9 MMOL/L (3.6-5.0); SODIUM 140 MMOL/L (135-145); TOTAL PROTEIN 6.6 GM/DL (6.4-8.2)
== END ==
LOC: EDSTATUS 02-14 15:05 → ONC 08:49
PROVIDERS: ATTEND Internal Medicine Hematology & Oncology
DX: Z12.31 Encounter for screening mammogram for malignant neoplasm of breast (principal); C50.911 Malignant neoplasm of unspecified site of right female breast; D72.818 Other decreased white blood cell count; G35 Multiple sclerosis; K21.9 Gastro-esophageal reflux disease without esophagitis; I10 Essential (primary) hypertension; Z90.10 Acquired absence of unspecified breast and nipple; Z92.3 Personal history of irradiation; Z92.21 Personal history of antineoplastic chemotherapy
CPT/HCPCS: 80053; 85025; 99213

== ENCOUNTER 2019-05-23 10:25 | Outpatient (RCR) | payer OTHER | END 2019-05-25 | disposition home or self-care (01) | LOC: CR3 10:25 | PROVIDERS: ATTEND Internal Medicine | DX: Z29.8 Encounter for other specified prophylactic measures (principal) ==

== ENCOUNTER 2019-06-23 06:00 | Outpatient (RCR) | payer OTHER | END 2019-06-25 | disposition home or self-care (01) | LOC: CR3 06:00 | PROVIDERS: ATTEND Internal Medicine | DX: Z29.8 Encounter for other specified prophylactic measures (principal) ==

== ENCOUNTER 2019-07-18 09:17 | Outpatient (RCR) | payer OTHER | END 2019-07-27 | disposition home or self-care (01) | LOC: CR3 09:17 | PROVIDERS: ATTEND Internal Medicine | DX: Z29.8 Encounter for other specified prophylactic measures (principal) ==

== ENCOUNTER → 2019-09-06 | Outpatient (CLI) | payer OTHER ==
--- NOTE | 2019-09-06 11:07 | Diagnostic Imaging Report ---
EXAMINATION: Ultrasound left breast limited INDICATION: Abnormal mammogram. The diagnostic mammogram performed earlier today noted a small area of increased density in the lateral aspect of the left breast. This seemed to resolve with compression images. On this study there is no discrete solid or cystic mass in the upper outer quadrant of the left breast. I suspect the density seen on the mammogram is related to fibroglandular tissue alone. IMPRESSION: There is no evidence of malignancy. The patient should have her annual bilateral mammogram on schedule in September 2020. ACR BI-RADS Category 1: Negative. Dictated by: Dictated on workstation # [id number]
--- NOTE | 2019-09-06 16:56 | Diagnostic Imaging Report ---
EXAMINATION: Digital mammogram bilateral diagnostic with CAD. INDICATION: Right breast carcinoma. COMPARISON: This study is compared to the prior exams of 07/28/2018, 07/27/2017, 07/21/2016, and 01/08/2016. PERSONAL HISTORY: At this time, there are no current complaints. FINDINGS: The post surgical changes involving the right breast seen previously are again evident and no different. There is no sign of recurrent malignancy involving the right breast. The fibroglandular tissue in both breasts is heterogeneously dense. On the craniocaudad view of the left breast in the far lateral aspect of the breast, there is a small 8 mm neodensity. There is no corresponding abnormality seen on the MLO view and the compression view and rolled views of this area failed to show any definite abnormality. The tomographic views are also unremarkable for a lesion. I suspect that this finding is secondary to superimposition of the fibroglandular tissue. Even so, I would recommend that an ultrasound of the left breast be performed for further study. There is no primary or secondary sign of malignancy noted otherwise. IMPRESSION: 1. Ultrasound would be recommended for further evaluation of the left breast. 2. There is no evidence for recurrent malignancy involving the right breast. ACR BI-RADS Category 0: Incomplete. (Needs additional imaging evaluation). Result letter will be mailed to the patient. Note: At least 10% of breast cancer is not imaged by mammography. Dictated by: Dictated on workstation # [id number]
== END ==
LOC: RAD 08:48
PROVIDERS: ATTEND Internal Medicine Hematology & Oncology
DX: Z12.31 Encounter for screening mammogram for malignant neoplasm of breast (principal); R92.8 Other abnormal and inconclusive findings on diagnostic imaging of breast; G35 Multiple sclerosis; Z85.3 Personal history of malignant neoplasm of breast
CPT/HCPCS: 76642; 77062; 77066

== ENCOUNTER 2019-09-13 08:45 | Outpatient (RCR) | payer OTHER ==
[2019-09-13 09:01] LABS: BASOPHILS % (AUTO) 0 % (0-10); EOSINOPHILS # (AUTO) 0.2 10^3/uL (0.0-0.3); EOSINOPHILS % (AUTO) 5 % (0-10); HEMATOCRIT 37 % (35-52); HEMOGLOBIN 12.6 G/DL (11.5-16.0); LYMPHOCYTES # (AUTO) 0.3 X 10^3 (1.0-4.0); LYMPHOCYTES % (AUTO) 10 % (12-44); MEAN CORPUSCULAR HEMOGLOBIN 31 PG (25-34); MEAN CORPUSCULAR HGB CONC 34 G/DL (32-36); MEAN CORPUSCULAR VOLUME 91 FL (80-99); MEAN PLATELET VOLUME 9.1 FL (7.4-10.4); MONOCYTES # (AUTO) 0.3 X 10^3 (0.0-1.0); MONOCYTES % (AUTO) 10 % (0-12); NEUTROPHILS # (AUTO) 2.3 X 10^3 (1.8-7.8); NEUTROPHILS % (AUTO) 75 % (42-75); PLATELET COUNT 263 10^3/uL (130-400); RED CELL DISTRIBUTION WIDTH 12.1 % (10.0-14.5)
[2019-09-13 09:22] LABS: ALANINE AMINOTRANSFERASE 27 U/L (0-55); ALBUMIN 4.1 GM/DL (3.2-4.5); ALKALINE PHOSPHATASE 102 U/L (40-136); BILIRUBIN,TOTAL 0.4 MG/DL (0.1-1.0); BUN/CREATININE RATIO 21; CALCIUM 9.6 MG/DL (8.5-10.1); CARBON DIOXIDE 23 MMOL/L (21-32); CHLORIDE 103 MMOL/L (98-107); CREATININE SERUM 0.75 MG/DL (0.60-1.30); GFR ESTIMATED > 60; GLUCOSE 121 MG/DL (70-105); POTASSIUM 4.1 MMOL/L (3.6-5.0); SODIUM 138 MMOL/L (135-145)
== END 2019-12-12 | disposition home or self-care (01) ==
LOC: ONC 08:45
PROVIDERS: ATTEND Internal Medicine Hematology & Oncology
DX: C50.511 Malignant neoplasm of lower-outer quadrant of right female breast (principal); G35 Multiple sclerosis; D72.818 Other decreased white blood cell count; R92.8 Other abnormal and inconclusive findings on diagnostic imaging of breast; I10 Essential (primary) hypertension; K21.9 Gastro-esophageal reflux disease without esophagitis; Z79.899 Other long term (current) drug therapy; Z98.890 Other specified postprocedural states; Z90.710 Acquired absence of both cervix and uterus; Z90.722 Acquired absence of ovaries, bilateral
CPT/HCPCS: 80053; 85025; G0463; 99213

== ENCOUNTER 2020-03-27 10:35 | Outpatient (RCR) | payer OTHER ==
[2020-03-27 10:51] LABS: BASOPHILS % (AUTO) 1 % (0-10); EOSINOPHILS # (AUTO) 0.2 10^3/uL (0.0-0.3); EOSINOPHILS % (AUTO) 6 % (0-10); HEMATOCRIT 37 % (35-52); HEMOGLOBIN 12.4 g/dL (11.5-16.0); LYMPHOCYTES # (AUTO) 0.3 10^3/uL (1.0-4.0); LYMPHOCYTES % (AUTO) 10 % (12-44); MEAN CORPUSCULAR HEMOGLOBIN 31 pg (25-34); MEAN CORPUSCULAR HGB CONC 34 g/dL (32-36); MEAN CORPUSCULAR VOLUME 92 fL (80-99); MEAN PLATELET VOLUME 9.1 fL (9.0-12.2); MONOCYTES # (AUTO) 0.3 10^3/uL (0.0-1.0); MONOCYTES % (AUTO) 9 % (0-12); NEUTROPHILS # (AUTO) 2.2 10^3/uL (1.8-7.8); NEUTROPHILS % (AUTO) 74 % (42-75); PLATELET COUNT 234 10^3/uL (130-400)
[2020-03-27 11:11] LABS: ALANINE AMINOTRANSFERASE 38 U/L (0-55); ALBUMIN 4.1 GM/DL (3.2-4.5); ALKALINE PHOSPHATASE 92 U/L (40-136); BILIRUBIN,TOTAL 0.3 MG/DL (0.1-1.0); BUN/CREATININE RATIO 18; CALCIUM 9.1 MG/DL (8.5-10.1); CARBON DIOXIDE 22 MMOL/L (21-32); CHLORIDE 106 MMOL/L (98-107); CREATININE SERUM 0.74 MG/DL (0.60-1.30); GFR ESTIMATED > 60; GLUCOSE 93 MG/DL (70-105); POTASSIUM 3.7 MMOL/L (3.6-5.0); SODIUM 140 MMOL/L (135-145); TOTAL PROTEIN 7.1 GM/DL (6.4-8.2)
== END 2020-06-25 | disposition home or self-care (01) ==
LOC: ONC 10:35
PROVIDERS: ATTEND Internal Medicine Hematology & Oncology
DX: C50.511 Malignant neoplasm of lower-outer quadrant of right female breast (principal)
CPT/HCPCS: 80053; 85025; G0463; 99213

== ENCOUNTER 2020-04-17 23:05 | Emergency (ER) | payer OTHER ==
[~2020-04-17] VITALS: Ht 167.7 cm; Wt 63.5 kg
[2020-04-17] MEDS ORDERED: LIDOCAINE PF 2% 5 ML (XYLOCAINE) VIAL ONE (23:12)
--- NOTE | 2020-04-17 23:23 | ED Respiratory ---
General Chief Complaint: Respiratory Problems Stated Complaint: CHOKING INCIDENT Nursing Triage Note: PT TO ROOM 05 VIA EMS WITH C/O DIFFICULTY SPEAKING AND BREATHING. EMS REPORTS THAT PT CHOKED AT 2100 ON A PILL. EMS STATES THE PILL CAME BACK UP AND NOW THE PT IS HAVING DIFFICULTY SPEAKING AND BREATHING. Source: EMS Exam Limitations: no limitations History of Present Illness Date Seen by Provider: Apr 17, 2020 Time Seen by Provider: 23:00 Initial Comments Patient is a 55-year-old female who presents to the emergency department today with a chief complaint of shortness of breath and "choking" after trying to take one of her amitriptyline tablets before bed this evening. EMS states that she was able to vomit back up the amitriptyline tablet and that it appeared to be as close to intact as possible. Patient subsequently was very almost stridorous with her inspiration with clear expiratory breath sounds. She was unable to talk and seem to be in quite a significant amount of distress on arrival with EMS. She denied pain. She denied nausea. She maintained that she couldn't speak because she was choking and grunting significantly. No other recent illnesses. The patient has a long history of 25 years of multiple sclerosis. All other review of systems reviewed and negative except as stated. Timing/Duration: just prior to arrival Severity: severe Prior Episodes/Possible Cause: other (Choked on a pill) Associated Symptoms: cough Allergies and Home Medications Allergies Coded Allergies: fentanyl (Verified Allergy, Intermediate, 10/09/12) Sulfa (Sulfonamide Antibiotics) (Unverified Allergy, Unknown, 09/04/09) pregabalin (Verified Allergy, Unknown, MS ATTACK, 03/20/17) quetiapine (Verified Allergy, Unknown, 07/29/05) Home Medications Ascorbic Acid 500 Mg Tablet, 500 MG PO TID, (Reported) Cholecalciferol 2,000 Unit Capsule, 2,000 UNIT PO DAILY, (Reported) Estrogens,Conjugated 0.9 Mg Tablet, 0.9 MG PO DAILY, (Reported) Fingolimod Hydrochloride 0.5 Mg Capsule, 0.5 MG PO DAILY, (Reported) Pantoprazole Sodium 40 Mg Suspdr.pkt, 40 MG PO DAILY, (Reported) Patient Home Medication List Home Medication List Reviewed: Yes Review of Systems Review of Systems Constitutional: no symptoms reported, see HPI EENTM: no symptoms reported Respiratory: cough, short of breath Cardiovascular: no symptoms reported Gastrointestinal: no symptoms reported Genitourinary: no symptoms reported Musculoskeletal: no symptoms reported Past Wlnbrkz-Xbbwxk-Ssozmr Hx Patient Social History Alcohol Use: Denies Use Recreational Drug Use: No Smoking Status: Never a Smoker 2nd Hand Smoke Exposure: No Recent Foreign Travel: No Contact w/Someone Who Travel: No Recent Infectious Disease Expo: No Recent Hopitalizations: No Physical Abuse: No Sexual Abuse: No Mistreated: No Fear: No Immunizations Up To Date Date of Pneumonia Vaccine: May 08, 2009 Date of Influenza Vaccine: Jan 20, 2012 Seasonal Allergies Seasonal Allergies: No Past Medical History Surgeries: Yes (SUPRAPUBIC CATHETER) Respiratory: No Cardiac: No Neurological: Yes Multiple Sclerosis Reproductive Disorders: No SENIOR SUPPLIER QUALITY ENGINEER History: Hysterectomy Sexually Transmitted Disease: No UTI-Chronic Gastrointestinal: No Musculoskeletal: No Endocrine: No HEENT: No Cancer: Yes Breast Psychosocial: Yes Bipolar Integumentary: No Blood Disorders: No Physical Exam Vital Signs - First Documented 04/17/20 04/17/20 23:08 23:25 Temp 36.1 Pulse 107 Resp 25 B/P (MAP) 108/90 (96) O2 Delivery Room Air FiO2 3 Capillary Refill : Less Than 3 Seconds Height: 5'6" Weight: 165lbs. 0.0oz. 74.339540pc; 22.00 BMI Method:Stated General Appearance: WD/WN, severe distress Neck: supple Respiratory: no accessory muscle use, rhonchi (Rhonchus breath sounds bilaterally in the posterior lung ocasio) Cardiovascular: regular rate, rhythm Gastrointestinal: non tender, soft Neurologic/Psychiatric: no motor/sensory deficits, alert, other (Anxious and agitated) Skin: normal color, warm/dry Progress/Results/Core Measures Suspected Sepsis Recent Fever Within 48 Hours: No Infection Criteria Present: None New/Unexplained Altered Menta: No Sepsis Screen: No Definite Risk SIRS Temperature: Pulse: 107 Respiratory Rate: 25 Blood Pressure 108 /90 Mean: 96 Results/Orders My Orders Orders - JUAN ALBERTO MCKAY MD Lidocaine 2% Pf 5 Ml (Xylocaine 2% Pf) (04/17/20 23:12) Chest 1 View, Ap/Pa Only (04/18/20 00:01) Lidocaine 2% Injection 20 Ml (Xylocaine (04/18/20 00:15) Vital Signs/I&O 04/17/20 04/17/20 23:08 23:25 Temp 36.1 Pulse 107 Resp 25 B/P (MAP) 108/90 (96) O2 Delivery Room Air FiO2 3 Capillary Refill : Less Than 3 Seconds Blood Pressure Mean: 96 Progress Note : Time: 23:58 Progress Note 55-year-old who choked on a tablet of amitriptyline this evening evaluation today includes physical exam, some nebulized lidocaine was used to help calm her breathing and help this stridorous grunting that she had. It seems to have worked very well. The patient is no longer in any type of respiratory distress. She is able to speak in complete sentences. Lung sounds remain rhonchorous alfredo aterally. She will receive a chest x-ray to make sure that she didn't aspirate any fluids or vomitus as she was getting the pill up. Patient feels much better and states that she is ready to go home. 0024 Patient's chest x-ray looks clear; she continues to feel little bit scared about choking. Departure Impression Primary Impression: Choking due to foreign body Qualified Codes: T17.900A - Unspecified foreign body in respiratory tract, part unspecified causing asphyxiation, initial encounter Disposition: 01 HOME, SELF-CARE Condition: Stable Departure-Patient Inst. Decision time for Depature: 00:34 Referrals: VIIVAN CAMARA MD (PCP/Family) Primary Care Physician Patient Instructions: Choking Add. Discharge Instructions: Continue your home daily medications. Drink plenty of fluids to stay well-hydrated. Follow-up with your primary care physician as needed. JUAN ALBERTO MCKAY MD Apr 17, 2020 23:23
[2020-04-18] MEDS ORDERED: LIDOCAINE 2% 20 ML (XYLOCAINE) VIAL INJ ONE (00:15)
[2020-04-18 00:57] VITALS: BP 137/102
--- NOTE | 2020-04-18 06:55 | Diagnostic Imaging Report ---
INDICATION: Shortness of breath. Comparison with 11/21/2013. FINDINGS: Portable chest shows patchy bilateral perihilar infiltrates developing. Lungs are well-aerated without air-trapping. The heart is not enlarged. No pulmonary edema or hilar adenopathy. No bony abnormalities. IMPRESSION: Developing bilateral perihilar pneumonia. Dictated by: Dictated on workstation # [id number]
== END 2020-04-18 00:57 | disposition home or self-care (01) ==
LOC: EDUNIT# 23:05 → ER 23:06
DX: T17.200A Unspecified foreign body in pharynx causing asphyxiation, initial encounter (principal); F41.9 Anxiety disorder, unspecified; Z88.2 Allergy status to sulfonamides; Z88.5 Allergy status to narcotic agent; Z88.8 Allergy status to other drugs, medicaments and biological substances; Z85.3 Personal history of malignant neoplasm of breast; X58.XXXA Exposure to other specified factors, initial encounter
CPT/HCPCS: 71045; 94640

== ENCOUNTER → 2020-05-07 | Outpatient (CLI) | payer OTHER ==
--- NOTE | 2020-05-07 09:59 | Diagnostic Imaging Report ---
INDICATION: Bilateral hand pain. Arthritis. COMPARISON: None. FINDINGS: Multiple radiographic views of the bilateral hands were obtained and show no fractures, dislocations, or other acute bony abnormalities. Joint spaces are well maintained throughout. The soft tissues appear unremarkable. No radiopaque foreign bodies are identified. IMPRESSION: Unremarkable radiographic exam of the bilateral hands. Dictated by: Dictated on workstation # [id number]
== END ==
LOC: RAD 09:15
PROVIDERS: ATTEND Internal Medicine
DX: M19.042 Primary osteoarthritis, left hand (principal); M19.041 Primary osteoarthritis, right hand

== ENCOUNTER → 2020-09-06 | Outpatient (CLI) | payer OTHER ==
[~2020-09-06] MED LIST changes: -AMIT10TA6; +AMT10T
--- NOTE | 2020-09-06 17:08 | Diagnostic Imaging Report ---
INDICATION: Right breast carcinoma. CORRELATION is made with prior mammograms from 09/06/2019 and 07/28/2018. 2-D and 3-D bilateral diagnostic mammography was performed with CAD. Both breasts are heterogeneously dense, limiting sensitivity of mammography. There is asymmetry in breast size, right smaller. Overall parenchymal pattern is stable. There are benign calcifications. No mass or malignant appearing microcalcifications are seen. Axillae are unremarkable. IMPRESSION: BI-RADS Category 2 No mammographic features suspicious for malignancy are identified. ACR BI-RADS Category 2: Benign findings. Result letter will be mailed to the patient. Note: At least 10% of breast cancer is not imaged by mammography. Dictated by: Dictated on workstation # [id number]
== END ==
LOC: RAD 12:38
PROVIDERS: ATTEND Internal Medicine Hematology & Oncology
DX: Z12.31 Encounter for screening mammogram for malignant neoplasm of breast (principal); D72.819 Decreased white blood cell count, unspecified; Z85.3 Personal history of malignant neoplasm of breast
CPT/HCPCS: 77066; G0279; 77062

== ENCOUNTER → 2020-09-25 | Outpatient (CLI) | payer OTHER ==
[2020-09-25 10:19] LABS: BASOPHILS % (AUTO) 0 % (0-10); EOSINOPHILS # (AUTO) 0.1 10^3/uL (0.0-0.3); EOSINOPHILS % (AUTO) 5 % (0-10); HEMATOCRIT 35 % (35-52); HEMOGLOBIN 11.7 g/dL (11.5-16.0); LYMPHOCYTES # (AUTO) 0.2 10^3/uL (1.0-4.0); LYMPHOCYTES % (AUTO) 9 % (12-44); MEAN CORPUSCULAR HEMOGLOBIN 32 pg (25-34); MEAN CORPUSCULAR HGB CONC 33 g/dL (32-36); MEAN CORPUSCULAR VOLUME 96 fL (80-99); MEAN PLATELET VOLUME 8.8 fL (9.0-12.2); MONOCYTES # (AUTO) 0.5 10^3/uL (0.0-1.0); MONOCYTES % (AUTO) 17 % (0-12); NEUTROPHILS # (AUTO) 1.8 10^3/uL (1.8-7.8); NEUTROPHILS % (AUTO) 68 % (42-75); PLATELET COUNT 218 10^3/uL (130-400); WHITE BLOOD COUNT 2.6 10^3/uL (4.3-11.0)
[2020-09-25 10:47] LABS: ALANINE AMINOTRANSFERASE 45 U/L (0-55); ALBUMIN 3.8 GM/DL (3.2-4.5); ALKALINE PHOSPHATASE 89 U/L (40-136); BILIRUBIN,TOTAL 0.3 MG/DL (0.1-1.0); BUN/CREATININE RATIO 19; CALCIUM 8.7 MG/DL (8.5-10.1); CARBON DIOXIDE 25 MMOL/L (21-32); CHLORIDE 108 MMOL/L (98-107); GFR ESTIMATED > 60; GLUCOSE 98 MG/DL (70-105); POTASSIUM 3.9 MMOL/L (3.6-5.0); SODIUM 139 MMOL/L (135-145); TOTAL PROTEIN 6.3 GM/DL (6.4-8.2)
== END ==
LOC: EDSTATUS 10:05 → ONC 10:07
PROVIDERS: ATTEND Internal Medicine Hematology & Oncology
DX: Z12.31 Encounter for screening mammogram for malignant neoplasm of breast (principal); K21.9 Gastro-esophageal reflux disease without esophagitis; I10 Essential (primary) hypertension; G35 Multiple sclerosis; F31.9 Bipolar disorder, unspecified; D69.6 Thrombocytopenia, unspecified; D72.819 Decreased white blood cell count, unspecified; N31.9 Neuromuscular dysfunction of bladder, unspecified; Z92.21 Personal history of antineoplastic chemotherapy; Z92.3 Personal history of irradiation; Z90.11 Acquired absence of right breast and nipple; Z90.710 Acquired absence of both cervix and uterus; Z85.3 Personal history of malignant neoplasm of breast
CPT/HCPCS: 80053; 85025; G0463; 99213

== ENCOUNTER → 2020-11-07 | Outpatient (CLI) | payer OTHER ==
--- NOTE | 2020-11-07 10:48 | Diagnostic Imaging Report ---
INDICATION: Left hip pain COMPARISON: None FINDINGS: Two views of the left hip demonstrate mild degenerative changes. There is no fracture or dislocation. No osseous lesion. IMPRESSION: Mild degenerative joint disease. Dictated by: Dictated on workstation # [id number]
== END ==
LOC: RAD 09:02
PROVIDERS: ATTEND Internal Medicine
DX: M16.12 Unilateral primary osteoarthritis, left hip (principal)
CPT/HCPCS: 73502

== ENCOUNTER → 2021-03-07 | Outpatient (CLI) | payer OTHER ==
[~2021-03-07] MED LIST changes: -OLAN5TAB25; +OLN5T
[2021-03-07 10:39] LABS: BASOPHILS % (AUTO) 1 % (0-10); EOSINOPHILS # (AUTO) 0.2 10^3/uL (0.0-0.3); EOSINOPHILS % (AUTO) 6 % (0-10); HEMATOCRIT 36 % (35-52); HEMOGLOBIN 12.3 g/dL (11.5-16.0); LYMPHOCYTES # (AUTO) 0.3 10^3/uL (1.0-4.0); LYMPHOCYTES % (AUTO) 10 % (12-44); MEAN CORPUSCULAR HEMOGLOBIN 32 pg (25-34); MEAN CORPUSCULAR HGB CONC 34 g/dL (32-36); MEAN CORPUSCULAR VOLUME 94 fL (80-99); MEAN PLATELET VOLUME 9.1 fL (9.0-12.2); MONOCYTES # (AUTO) 0.4 10^3/uL (0.0-1.0); MONOCYTES % (AUTO) 15 % (0-12); NEUTROPHILS # (AUTO) 1.7 10^3/uL (1.8-7.8); NEUTROPHILS % (AUTO) 67 % (42-75); PLATELET COUNT 214 10^3/uL (130-400); WHITE BLOOD COUNT 2.5 10^3/uL (4.3-11.0)
[2021-03-07 11:01] LABS: ALBUMIN 3.9 GM/DL (3.2-4.5); BILIRUBIN,TOTAL 0.4 MG/DL (0.1-1.0); CALCIUM 9.2 MG/DL (8.5-10.1); CREATININE SERUM 0.74 MG/DL (0.60-1.30); POTASSIUM 3.8 MMOL/L (3.6-5.0); TOTAL PROTEIN 6.8 GM/DL (6.4-8.2)
== END ==
LOC: ONC 09:58
PROVIDERS: ATTEND Internal Medicine Hematology & Oncology
DX: C50.811 Malignant neoplasm of overlapping sites of right female breast (principal); N31.9 Neuromuscular dysfunction of bladder, unspecified; D70.2 Other drug-induced agranulocytosis; I10 Essential (primary) hypertension; Z92.21 Personal history of antineoplastic chemotherapy; Z90.11 Acquired absence of right breast and nipple; Z90.711 Acquired absence of uterus with remaining cervical stump
CPT/HCPCS: 80053; 85025; G0463; 99213

== ENCOUNTER 2021-06-24 10:02 | Outpatient (RCR) | payer OTHER | END 2021-06-27 14:29 | disposition home or self-care (01) | PROVIDERS: ATTEND Internal Medicine | DX: R26.89 Other abnormalities of gait and mobility (principal) ==

== ENCOUNTER → 2021-08-30 | Outpatient (CLI) | payer OTHER ==
[~2021-08-30] MED LIST changes: +HOLD METFORMIN - RECEIVED CONTRAST 20 ML VIAL IV SCH; +IOHEXOL 350 MG/ML 100 ML (OMNIPAQUE 350) VIAL IV ONE; +NS 100 ML (IVPB) BAG IV ONE
[2021-08-30 12:19] LABS: HEMATOCRIT 39 % (35-52); HEMOGLOBIN 13.4 g/dL (11.5-16.0); MEAN CORPUSCULAR HEMOGLOBIN 32 pg (25-34); MEAN CORPUSCULAR HGB CONC 34 g/dL (32-36); MEAN CORPUSCULAR VOLUME 93 fL (80-99); PLATELET COUNT 225 10^3/uL (130-400); WHITE BLOOD COUNT 3.6 10^3/uL (4.3-11.0)
[2021-08-30 12:38] LABS: ALBUMIN 4.4 GM/DL (3.2-4.5); BILIRUBIN,TOTAL 0.5 MG/DL (0.1-1.0); CALCIUM 9.9 MG/DL (8.5-10.1); CREATININE SERUM 0.84 MG/DL (0.60-1.30); POTASSIUM 4.1 MMOL/L (3.6-5.0); TOTAL PROTEIN 7.3 GM/DL (6.4-8.2)
--- NOTE | 2021-08-30 13:23 | Diagnostic Imaging Report ---
PROCEDURE: CT abdomen and pelvis with contrast. TECHNIQUE: Multiple contiguous axial images were obtained through the abdomen and pelvis after administration of intravenous contrast. Auto Exposure Controls were utilized during the CT exam to meet ALARA standards for radiation dose reduction. All CT scans use one or more of the following dose optimizing techniques: automated exposure control, MA and/or KvP adjustment based on patient size and exam type or iterative reconstruction. INDICATION: Abdominal pain. FINDINGS: Lung bases are clear. There is a large fixed hiatal hernia. There is a large amount of stool present throughout the colon from the cecum to the rectum. Small bowel is not distended. The stomach is not dilated. There are fatty changes of liver with hepatomegaly. Bile ducts are not dilated. Gallbladder appears normal. Pancreas and spleen are normal. The adrenal glands are not enlarged. The kidneys show symmetrical nephrogram effect. No calculi or hydronephrosis. No masses. There is good opacification of the aorta and abdominal vessels which appear normal. No intra-abdominal adenopathy of pathologic size. There is a suprapubic catheter present. There are no pelvic masses. The patient has had hysterectomy. The appendix is visualized. No bony lesion. IMPRESSION: 1. There is a large burden of stool throughout the colon to the rectum. There is no evidence of bowel obstruction. 2. The large fixed hiatal hernia. 3. Hepatomegaly with hepatic steatosis. Dictated by: Dictated on workstation # [id number]
== END ==
LOC: RAD 12:00
PROVIDERS: ATTEND Nurse Practitioner Family
DX: K44.9 Diaphragmatic hernia without obstruction or gangrene (principal); K76.0 Fatty (change of) liver, not elsewhere classified
CPT/HCPCS: 36415; 74177; 80053; 85027

== ENCOUNTER → 2021-09-09 | Outpatient (CLI) | payer OTHER ==
[~2021-09-09] MED LIST changes: -HOLD METFORMIN - RECEIVED CONTRAST 20 ML VIAL IV SCH; -IOHEXOL 350 MG/ML 100 ML (OMNIPAQUE 350) VIAL IV ONE; -NS 100 ML (IVPB) BAG IV ONE
--- NOTE | 2021-09-10 09:31 | Diagnostic Imaging Report ---
3-D bilateral screening mammogram with CAD. This exam is technically difficult as the patient was wheelchair bound. This study was compared to the prior exams as far back as 07/27/2017. At this time there are no current complaints. FINDINGS: The fibroglandular tissue in both breasts is heterogeneously dense. This does limit the sensitivity of this exam. Overall, there does not appear to have been any significant change when compared to the prior study. No primary or secondary sign of malignancy is noted. Benign-appearing calcifications are again seen in both breasts. IMPRESSION: There is no radiographic evidence for malignancy. ACR BI-RADS Category 1 NEGATIVE Result letter will be mailed to the patient. Note: At least 10% of breast cancer is not imaged by mammography. Dictated by: Dictated on workstation # [id number]
== END ==
LOC: RAD 08:58
PROVIDERS: ATTEND Internal Medicine Hematology & Oncology
DX: Z12.31 Encounter for screening mammogram for malignant neoplasm of breast (principal)
CPT/HCPCS: 77063; 77067

== ENCOUNTER → 2021-09-16 | Outpatient (CLI) | payer OTHER ==
[2021-09-16 09:27] LABS: BASOPHILS % (AUTO) 1 % (0-10); EOSINOPHILS # (AUTO) 0.2 10^3/uL (0.0-0.3); EOSINOPHILS % (AUTO) 6 % (0-10); HEMATOCRIT 39 % (35-52); HEMOGLOBIN 13.5 g/dL (11.5-16.0); LYMPHOCYTES # (AUTO) 0.3 10^3/uL (1.0-4.0); LYMPHOCYTES % (AUTO) 10 % (12-44); MEAN CORPUSCULAR HEMOGLOBIN 32 pg (25-34); MEAN CORPUSCULAR HGB CONC 34 g/dL (32-36); MEAN CORPUSCULAR VOLUME 92 fL (80-99); MEAN PLATELET VOLUME 9.4 fL (9.0-12.2); MONOCYTES # (AUTO) 0.6 10^3/uL (0.0-1.0); MONOCYTES % (AUTO) 16 % (0-12); NEUTROPHILS # (AUTO) 2.3 10^3/uL (1.8-7.8); NEUTROPHILS % (AUTO) 67 % (42-75); PLATELET COUNT 237 10^3/uL (130-400); WHITE BLOOD COUNT 3.4 10^3/uL (4.3-11.0)
== END ==
LOC: ONC 09:03
PROVIDERS: ATTEND Internal Medicine Hematology & Oncology
DX: C50.919 Malignant neoplasm of unspecified site of unspecified female breast (principal); G35 Multiple sclerosis; N31.9 Neuromuscular dysfunction of bladder, unspecified; I10 Essential (primary) hypertension; Z90.10 Acquired absence of unspecified breast and nipple; Z92.21 Personal history of antineoplastic chemotherapy; Z90.710 Acquired absence of both cervix and uterus
CPT/HCPCS: 85025; G0463; 36415; 99213

== ENCOUNTER 2021-10-05 08:17 | Observation (INO) | payer OTHER, MEDICARE ==
[~2021-10-05] VITALS: Ht 167.7 cm; Wt 79.0 kg
[~2021-10-05 08:17] MED LIST changes: -AMIT100T2; +AMIT100T2 PO; -CALC-671; +CALC-671 PO; -MULT-608; +MULT-608 PO
[2021-10-05] MEDS ORDERED: NS IV 1000 ML 1,000 ML IV SCH (09:15)
--- NOTE | 2021-10-05 09:17 | ED GI ---
General Chief Complaint: Abdominal/GI Problems Stated Complaint: DIARRHEA Nursing Triage Note: PT TO RM 7 BY WITH COMPLAINT OF DIARRHEA. STATES HAS HAD DIARRHEA INTERMITTENTLY SINCE THURSDAY NIGHT. PT HAS HX OF MS. STATES PT FINISHED COURSE OF ANTIBIOTICS FOR A TOE INFECTION ON THURSDAY. Source of Information: Patient Exam Limitations: No Limitations History of Present Illness Date Seen by Provider: Oct 05, 2021 Time Seen by Provider: 09:04 Initial Comments Patient is a 56-year-old female who presents to the emergency department today with a chief complaint of diarrhea ongoing over the last week. She states that she has had too many to count stools and she has not noticed any blood in her stool. She has a history of multiple sclerosis and is on medications for it followed by Dr. Tomas in [facility]. She complains of subjective fever, intermittent abdominal cramping. She has a suprapubic catheter that is due to be changed out tomorrow. She complains of generalized fatigue and malaise. She recently finished a course of antibiotics for a toe infection, the left fifth toe last week. She has never had antibiotic associated diarrhea before. Her states that she has been profoundly constipated over the course of recent months. Last month she took quite a lot of stool softeners and laxative s. She has not had any of these in a week. Has been did state that he gave her 2 doses of Pepto-Bismol yesterday. Her Neurologist is Dr Saul Jordan in [place], [place] All other review of systems reviewed and negative except as stated. Timing/Duration: 1 Week Severity/Quality: Cramping Location: Generalized Abdomen Radiation: No Radiation Activities at Onset: None Associated Symptoms: Weakness Allergies and Home Medications Allergies Coded Allergies: fentanyl (Verified Allergy, Intermediate, 10/09/12) Sulfa (Sulfonamide Antibiotics) (Unverified Allergy, Unknown, 09/04/09) pregabalin (Verified Allergy, Unknown, MS ATTACK, 03/20/17) quetiapine (Verified Allergy, Unknown, 07/29/05) Patient Home Medication List Home Medication List Reviewed: Yes Amitriptyline HCl (Amitriptyline HCl) 10 Mg Tablet, (Reported) Entered as Reported by: LANDEN SUN on 06/22/17 0012 Amitriptyline HCl (Amitriptyline HCl) 100 Mg Tablet, (Reported) Entered as Reported by: LANDEN SUN on 06/22/17 001 Ascorbic Acid (Vitamin C 500 Mg) 500 Mg Tablet, 500 MG PO TID, (Reported) Entered as Reported by: ISA CHURCH on 05/05/11 103 Calcium Carbonate/Vitamin D3 (Calcium 600 + D Caplet) 1 Each Tablet, (Reported) Entered as Reported by: ODETTE CHAVES on 09/04/091941 Cholecalciferol (Vitamin D) 2,000 Unit Capsule, 2,000 UNIT PO DAILY, (Reported) Entered as Reported by: ISA CHURCH on 05/05/11 103 Estrogens,Conjugated (Premarin) 0.9 Mg Tablet, 0.9 MG PO DAILY, (Reported) Entered as Reported by: LOY CHILDERS on 02/21/11 172 Fingolimod Hydrochloride (Gilenya) 0.5 Mg Capsule, 0.5 MG PO DAILY, (Reported) Entered as Reported by: ISA CHURCH on 05/05/111033 Multivitamins (Multiple Vitamin) 1 Tab Tablet, (Reported) Entered as Reported by: ODETTE CHAVES on 09/04/091935 Olanzapine (Olanzapine) 5 Mg Tablet, (Reported) Entered as Reported by: LANDEN SUN on 06/22/1711 Pantoprazole Sodium (Protonix SUSP.) 40 Mg Suspdr.pkt, 40 MG PO DAILY, (Reported) Entered as Reported by: ISA CHURCH on 05/05/11 103 Review of Systems Review of Systems Constitutional: see HPI EENTM: No Symptoms Reported Respiratory: No Symptoms Reported Cardiovascular: No Symptoms Reported Gastrointestinal: Abdominal Pain, Diarrhea, Nausea Genitourinary: No Symptoms Reported Musculoskeletal: no symptoms reported Skin: no symptoms reported Psychiatric/Neurological: No Symptoms Reported All Other Systems Reviewed Negative Unless Noted: Yes Past Cavrsdy-Sjfdjs-Fitzkd Hx Patient Social History Tobacco Use?: No Use of E-Cig and/or Vaping dev: No Substance use?: No Alcohol Use?: No Pt feels they are or have been: No Immunizations Up To Date Influenza Vaccine Up-to-Date: Yes; Up-to-Date First/Initial COVID19 Vaccinat: 2020 Seasonal Allergies Seasonal Allergies: No Past Medical History Surgeries: Yes (SUPRAPUBIC CATHETER) Respiratory: No Cardiac: No Neurological: Yes Multiple Sclerosis Reproductive Disorders: 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 0.0oz. [id number]; 23.00 BMI Method:Stated General Appearance: WD/WN, no apparent distress HEENT: PERRL/EOMI, other (tongue black consistent with Pepto yesterday) Neck: normal inspection Respiratory: lungs clear, normal breath sounds, no respiratory distress, no accessory muscle use Cardiovascular: regular rate, rhythm Gastrointestinal: non tender, soft, abnormal bowel sounds (slightly hyperactive) Extremities: normal inspection Neurologic/Psychiatric: alert, normal mood/affect, oriented x 3 Skin: normal color, warm/dry, other (well healing lesion lateral aspect of right 5th toe) Progress/Results/Core Measures Results/Orders Lab Results Laboratory Tests Test 10/05/21 09:40 10/05/21 09:49 Range/Units White Blood Count 5.6 4.3-11.0 10^3/uL Red Blood Count 4.24 3.80-5.11 10^6/uL Hemoglobin 13.3 11.5-16.0 g/dL Hematocrit 39 35-52 % Mean Corpuscular Volume 92 80-99 fL Mean Corpuscular Hemoglobin 31 25-34 pg Mean Corpuscular Hemoglobin Concent 34 32-36 g/dL Red Cell Distribution Width 11.9 10.0-14.5 % Platelet Count 205 130-400 10^3/uL Mean Platelet Volume 9.4 9.0-12.2 fL Immature Granulocyte % (Auto) 0 % Neutrophils (%) (Auto) 75 42-75 % Lymphocytes (%) (Auto) 7 L 12-44 % Monocytes (%) (Auto) 14 H 0-12 % Eosinophils (%) (Auto) 3 0-10 % Basophils (%) (Auto) 0 0-10 % Neutrophils # (Auto) 4.2 1.8-7.8 10^3/uL Lymphocytes # (Auto) 0.4 L 1.0-4.0 10^3/uL Monocytes # (Auto) 0.8 0.0-1.0 10^3/uL Eosinophils # (Auto) 0.2 0.0-0.3 10^3/uL Basophils # (Auto) 0.0 0.0-0.1 10^3/uL Immature Granulocyte # (Auto) 0.0 0.0-0.1 10^3/uL Neutrophils % (Manual) 70 % Lymphocytes % (Manual) 4 % Monocytes % (Manual) 19 % Eosinophils % (Manual) 6 % Basophils % (Manual) 1 % Blood Morphology Comment NORMAL Sodium Level 139 135-145 MMOL/L Potassium Level 4.0 3.6-5.0 MMOL/L Chloride Level 105 98-107 MMOL/L Carbon Dioxide Level 21 21-32 MMOL/L Anion Gap 13 5-14 MMOL/L Blood Urea Nitrogen 13 7-18 MG/DL Creatinine 0.73 0.60-1.30 MG/DL Estimat Glomerular Filtration Rate 95 BUN/Creatinine Ratio 18 Glucose Level 94 70-105 MG/DL Calcium Level 9.5 8.5-10.1 MG/DL Corrected Calcium 9.4 8.5-10.1 MG/DL Total Bilirubin 0.7 0.1-1.0 MG/DL Aspartate Amino Transf (AST/SGOT) 33 5-34 U/L Alanine Aminotransferase (ALT/SGPT) 71 H 0-55 U/L Alkaline Phosphatase 136 40-136 U/L Total Protein 7.1 6.4-8.2 GM/DL Albumin 4.1 3.2-4.5 GM/DL Urine Color YELLOW Urine Clarity CLEAR Urine pH 6.0 5-9 Urine Specific [place] 1.025 H 1.016-1.022 Urine Protein NEGATIVE NEGATIVE Urine Glucose (UA) NEGATIVE NEGATIVE Urine Ketones NEGATIVE NEGATIVE Urine Nitrite NEGATIVE NEGATIVE Urine Bilirubin NEGATIVE NEGATIVE Urine Urobilinogen 0.2 < = 1.0 MG/DL Urine Leukocyte Esterase NEGATIVE NEGATIVE Urine RBC (Auto) NEGATIVE NEGATIVE Urine RBC NONE /HPF Urine WBC NONE /HPF Urine Squamous Epithelial Cells 0-2 /HPF Urine Crystals NONE /LPF Urine Bacteria TRACE /HPF Urine Casts NONE /LPF Urine Mucus NEGATIVE /LPF Urine Yeast MODERATE H /HPF Urine Culture Indicated YES Micro Results Microbiology 10/05/21 C. difficile GDH Antigen & Toxins - Final, Resulted 10/05/21 Stool Culture, Resulted Pending My Orders Orders - JUAN ALBERTO MCKAY MD Ed Iv/Invasive Line Start (10/05/21 09:12) Cbc With Automated Diff (10/05/21 09:12) Comprehensive Metabolic Panel (10/05/21 09:12) Ua Culture If Indicated (10/05/21 09:12) Stool Culture (10/05/21 09:12) Parasite Complete Exam Stool (10/05/21 09:12) C Difficile Ag + Toxin A/B. (10/05/21 09:12) Parasite Scrn Stool Giard Cryp (10/05/21 09:12) Isolation Central Supply Req (10/05/21 09:12) Ns Iv 1000 Ml (Sodium Chloride 0.9%) (10/05/21 09:15) Manual Differential (10/05/21 09:40) Urine Culture (10/05/21 09:49) Ns Iv 1000 Ml (Sodium Chloride 0.9%) (10/05/21 11:00) Metronidazole Tablet (Flagyl Tablet) (10/05/21 11:00) Vital Signs/I&O 10/05/21 08:29 Temp 35.8 Pulse 91 Resp 20 B/P (MAP) 127/80 (96) Pulse Ox 100 O2 Delivery Room Air Blood Pressure Mean: 96 Progress Progress Note : Time: 10:53 Progress Note Patient's labs reviewed, her total white blood cell count is elevated at 5.6. She states this is quite high for her as she is normally around the 3.2 range with the medication she is on for her MS. She is C. difficile positive today. The rest of her electrolytes look normal. She states the higher that her white blood cell count climbs the more at risk she is for a "MS flare". Her is concerned about being at home with the diarrhea constantly and her getting dehydrated and devolving into an MS flare. He states that usually results in her being in the hospital for weeks at a time. He is questioning whether or not we might be able to start her on the medication for C. difficile as well as IV fluids. I agree that I would speak to the hospitalist on-call regarding admission. -- Discussed with Dr. Kwok. She will put in que'd orders. We will put her on oral Vanco. Departure Communication (Admissions) Time/Spoke to Admitting Phy: 11:[address] Kwok Impression Primary Impression: C. difficile enteritis Additional Impression: Multiple sclerosis Disposition: ADMITTED INPATIENT Condition: Stable Admissions Decision to Admit Reason: Admit from ER (General) Decision to Admit/Date: Oct 05, 2021 Time/Decision to Admit Time: 11:06 Departure-Patient Inst. Referrals: VIVIAN CAMARA MD (PCP/Family) Primary Care Physician JUAN ALBERTO MCKAY MD Oct 05, 2021 09:17
[2021-10-05 09:47] LABS: BASOPHILS % (AUTO) 0 % (0-10); EOSINOPHILS # (AUTO) 0.2 10^3/uL (0.0-0.3); EOSINOPHILS % (AUTO) 3 % (0-10); HEMATOCRIT 39 % (35-52); HEMOGLOBIN 13.3 g/dL (11.5-16.0); LYMPHOCYTES # (AUTO) 0.4 10^3/uL (1.0-4.0); LYMPHOCYTES % (AUTO) 7 % (12-44); MEAN CORPUSCULAR HEMOGLOBIN 31 pg (25-34); MEAN CORPUSCULAR HGB CONC 34 g/dL (32-36); MEAN CORPUSCULAR VOLUME 92 fL (80-99); MEAN PLATELET VOLUME 9.4 fL (9.0-12.2); MONOCYTES # (AUTO) 0.8 10^3/uL (0.0-1.0); MONOCYTES % (AUTO) 14 % (0-12); NEUTROPHILS # (AUTO) 4.2 10^3/uL (1.8-7.8); NEUTROPHILS % (AUTO) 75 % (42-75); PLATELET COUNT 205 10^3/uL (130-400); WHITE BLOOD COUNT 5.6 10^3/uL (4.3-11.0)
[2021-10-05 09:55] LABS: BILIRUBIN,URINE NEGATIVE (NEGATIVE); CLARITY,URINE CLEAR; COLOR,URINE YELLOW; GLUCOSE, URINE (UA) NEGATIVE (NEGATIVE); KETONES,URINE NEGATIVE (NEGATIVE); LEUKOCYTE ESTERASE ,URINE NEGATIVE (NEGATIVE); NITRITE,URINE NEGATIVE (NEGATIVE); PROTEIN,URINE NEGATIVE (NEGATIVE)
[2021-10-05 10:05] LABS: ALBUMIN 4.1 GM/DL (3.2-4.5)
[2021-10-05 10:06] LABS: BASOPHILS % (MANUAL) 1 %; EOSINOPHILS % (MANUAL) 6 %; LYMPHOCYTES % (MANUAL) 4 %; MONOCYTES % (MANUAL) 19 %; NEUTROPHILS % (MANUAL) 70 %; RBC MORPH NORMAL
[2021-10-05 10:07] LABS: CALCIUM 9.5 MG/DL (8.5-10.1)
[2021-10-05 10:08] LABS: TOTAL PROTEIN 7.1 GM/DL (6.4-8.2)
[2021-10-05 10:10] LABS: BILIRUBIN,TOTAL 0.7 MG/DL (0.1-1.0)
[2021-10-05 10:11] LABS: BACTERIA,URINE TRACE /HPF; SQUAMOUS EPITHELIAL CELL,UR 0-2 /HPF; YEAST,URINE MODERATE /HPF
[2021-10-05 10:12] LABS: CREATININE SERUM 0.73 MG/DL (0.60-1.30)
[2021-10-05] MEDS ORDERED: metroNIDAZOLE 500 MG (FLAGYL) TAB PO ONE (11:00)
[2021-10-05] MEDS ORDERED: VANCOMYCIN 125 MG CAPSULE PO STA (11:08)
[2021-10-05] MEDS: NS IV 1000 ML 1,000 ML IV SCH ×2 (11:30→17:15)
[2021-10-05] MEDS ORDERED: ANTACID SUSP 30 ML UDC (MYLANTA) PO PRN (12:15)
[2021-10-05] MEDS ORDERED: MELATONIN 3 MG TABLET PO PRN (12:15)
[2021-10-05] MEDS ORDERED: CALCIUM CARBONATE 500 MG (TUMS) TAB.CHEW PO PRN (12:15)
[2021-10-05] MEDS ORDERED: ONDANSETRON 4 MG/2 ML (SDV) Z0FRAN IV PRN (12:15)
--- NOTE | 2021-10-05 12:40 | History & Physical-Hospitalist ---
History of Present Illness HPI/Chief Complaint Patient is a 56-year-old female with past medical history of multiple sclerosis who presented to the emergency department due to profuse diarrhea. Her states that this started roughly a week ago but on October 01 is when it really worsened. They complain of multiple liquid stools a day. She had recently been on antibiotics for a toe infection and had also been constipated so was taking stool softeners and laxatives. At first they thought the diarrhea was due to the laxatives. Testing in the emergency department revealed C. difficile though. Given her fragile medical status and some difficulty swallowing she is being admitted for observation for IV fluids. Source: patient Date Seen 10/05/21 Time Seen by a Provider: 12:35 Attending Physician Robert Live MD PCP Admitting Physician: Gabo Kwok MD Attending Physician: Gabo Kwok MD Referring Physician Date of Admission Oct 05, 2021 at 11:10 Home Medications & Allergies Home Medications Reviewed patient Home Medication Reconciliation performed by pharmacy medication reconciliations certified pest control technician and/or nursing. Patients Allergies have been reviewed. Allergies Allergies Coded Allergies fentanyl (Verified Allergy, Intermediate, 10/09/12) Sulfa (Sulfonamide Antibiotics) (Unverified Allergy, Unknown, 09/04/09) pregabalin (Verified Allergy, Unknown, MS ATTACK, 03/20/17) quetiapine (Verified Allergy, Unknown, 07/29/05) Past Dbryvlh-Vfsnrl-Gsirrs Hx Patient Social History Marrital Status: Tobacco Use?: No Smoking Status: Never a Smoker Use of E-Cig and/or Vaping dev: No Substance use?: No Alcohol Use?: No Pt feels they are or have been: No Immunizations Up To Date Date of Influenza Vaccine: Jan 20, 2012 First/Initial COVID19 Vaccinat: 2020 Tetanus Booster (TDap): Unknown Date of Pneumonia Vaccine: May 08, 2009 Seasonal Allergies Seasonal Allergies: No Current Status Advance Directives: No Primary Language: Icelandic Preferred Spoken Language: Icelandic 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 Sexually Transmitted Disease: No UTI-Chronic Breast Bipolar Blood Disorders: No Family Medical History Reviewed Nursing Family Hx No Pertinent Family Hx Review of Systems Constitutional: No chills, No fever; weakness EENTM: no symptoms reported Respiratory: no symptoms reported Cardiovascular: no symptoms reported Gastrointestinal: diarrhea, loss of appetite Genitourinary: no symptoms reported Musculoskeletal: no symptoms reported Skin: no symptoms reported Psychiatric/Neurological: No Symptoms Reported Physical Exam Physical Exam Vital Signs Vital Signs - First Documented 10/05/21 08:29 Temp 35.8 Pulse 91 Resp 20 B/P (MAP) 127/80 (96) Pulse Ox 100 O2 Delivery Room Air Capillary Refill : Less Than 3 Seconds Height, Weight, BMI Height: 5'6" Weight: 165lbs. 0.0oz. 74.041246kh; 23.00 BMI Method:Stated General Appearance: No Apparent Distress, Chronically ill HEENT: PERRL/EOMI, Moist Mucous Membranes; No Scleral Icterus (L), No Scleral Icterus (R) Neck: Normal Inspection, Supple Respiratory: Lungs Clear, No Accessory Muscle Use, No Respiratory Distress Cardiovascular: Regular Rate, Rhythm, No JVD, No Murmur Gastrointestinal: Normal Bowel Sounds, Non Tender, Soft Extremity: Normal Capillary Refill, No Calf Tenderness, No Pedal Edema Neurologic/Psychiatric: Alert, Oriented x3, Normal Mood/Affect, Aphasia (dysphasia, slight) Results Results/Procedures Labs Laboratory Tests 10/05/21 09:40 10/06/21 05:40 Patient resulted labs reviewed. Assessment/Plan Admission Diagnosis c diff colitis Admission Status: Observation Assessment and Plan c diff colitis Dehydratin Oral vanc IVF for rehydration WBC up to 5.6 from 3 thr other day and indira reports concern about this being very abnormal for her Hopefully home tomorrow if doing well MS Dysphagia Dysphasia Resume home meds Refuses diet modification per Diagnosis/Problems Diagnosis/Problems (1) C. difficile enteritis Status: Acute (2) Multiple sclerosis Status: Acute GABO KWOK MD Oct 05, 2021 12:40
[2021-10-05 12:45] VITALS: BP 152/82
[2021-10-05] MEDS ORDERED: PATIENT MAY USE OWN MEDS, ALL MC SCH (12:45)
[2021-10-05] MEDS ORDERED: IBUP-30 PO (13:08)
[2021-10-05] MEDS ORDERED: POTA-179 PO (13:08)
[2021-10-05] MEDS ORDERED: SOLI10TA2 PO (13:08)
[2021-10-05] MEDS ORDERED: PANT40TA2 PO (13:08)
[2021-10-05] MEDS ORDERED: NITR-68 PO (13:08)
[2021-10-05] MEDS ORDERED: AMT10T PO (13:08)
--- NOTE | 2021-10-05 13:11 | Physical Therapy Evaluation ---
PT Evaluation-General Medical Diagnosis Admission Date Oct 05, 2021 at 11:10 Medical Diagnosis: C-Diff Onset Date: Oct 05, 2021 Therapy Diagnosis Therapy Diagnosis: Debility, Decreased functional mobitliy Height/Weight Height (Feet): 5 Height (Inches): 6 Weight (Pounds): 165 Weight (Ounces): 0.0 Precautions Precautions/Isolations: Contact Isolation, Standard Precautions Referral Physician: Luana Reason for Referral: Evaluation/Treatment Social History Home: Single Level Current Living Status: Significant Other Entry Into Home: Stairs With Railing Prior Prior Level of Function SCALE: Activities may be completed with or without assistive devices. 0-Fbujmnteai-kaceqnt completes the activity by him/herself with no assistance from a helper. 5-Set-up or Clean-up Assistance-helper sets up or cleans up; patient completes activity. [place] assists only prior to or following the activity. 4-Supervision or Touching Assistance-helper provides verbal cues and/or touch ing/steadying and/or contact guard assistance as patient completes activity. Assistance may be provided throughout the activity or intermittently. 3-Partial/Moderate Assistance-helper does LESS THAN HALF the effort. [place] lifts, holds or supports trunk or limbs, but provides less than half the effort. 2-Substantial/Maximal Assistance-helper does MORE THAN HALF the effort. [place] lifts or holds trunk or limbs and provides more than half the effort. 4-Kmqfmlzar-qnvplk does ALL the effort. Patient does none of the effort to complete the activity. Or, the assistance of 2 or more helpers is required for the patient to complete the activity. If activity was not attempted, code reason: 7-Patient Refused. 9-Not Applicable-not attempted and the patient did not perform the activity before the current illness, exacerbation or injury. 10-Not Attempted due to Environmental Limitations-(lack of equipment, weather restraints, etc.). 88-Not Attempted due to Medical Conditions or Safety Concerns. Bed Mobility: 6 Transfers (B,C,W/C): 6 Gait: 88 Stairs: 88 Wheelchair Mobility: 6 Prior Devices Use: Manual wheelchair PT Evaluation-Current Subjective Pt admitted from ED with diagnosis of C.. Diff, she states that her mobility has declined due to feeling sick. She typically is (I) with transfers; however, the past week she has needed assistance from her Pt/Family Goals return to PLOF Objective Patient Orientation: Person, Place, Situation Attachments: Ruano Catheter ROM/Strength ROM Lower Extremities WFL Strength Lower Extremities grossly 3/5 Sensory Vision: Functional Hearing: Functional Sensation Right Upper Extremit: Intact Sensation Left Upper Extremity: Intact Sensation Right Lower Extremit: Intact Sensation Left Lower Extremity: Intact Transfers Roll Left to Right (QC): 6 Sit to Lying (QC): 4 Lying to Sitting/Side of Bed(Q: 4 Sit to Stand (QC): 3 Chair/Qai-jj-Tkmkm Xfer(QC): 3 Gait Does the Patient Walk?: No and Walking Goal NOT indicated Wheelchair Training Does the Pt Use a Wheelchair?: Yes Assessment/Needs At baseline, pt transfers to and from [facility] (I), and is (I) with [facility] mobility around the house. She has decreased strength, functional mobility and activity tolerance due to being ill, and would benefit from 1-2 visits from physical therapy while in the hospital to ensure return to PLOF and (I) transfers to [facility] so she can safely return home. Rehab Potential: Good PT Short Term Goals Short Term Goals Time Frame: Oct 12, 2021 Roll Left & Right: 6 Sit to lyin Lying to sitting on side of be: 6 Chair/uuf-oi-ccpez transfer: 6 Toilet transfer: 6 Car transfer: 6 Does pt use a wc or scooter: Yes Wheel 50ft w/2 turns: 6 Wheel 150 feet: 6 PT Plan Problem List Problem List: Activity Tolerance, Functional Strength, Safety, Balance, Transfer, Bed Mobility, ROM Treatment/Plan Treatment Plan: Continue Plan of Care Treatment Plan: Bed Mobility, Education, Functional Activity Ke, Functional Strength, Safety, Therapeutic Exercise, Transfers Treatment Duration: Oct 12, 2021 Frequency: 7 times per week Estimated Hrs Per Day: .25 hour per day Patient and/or Family Agrees t: Yes Time/GCodes Time In: 1255 Time Out: 1305 Total Billed Treatment 1 visit DOUGLAS (10') NANI KISER PT Oct 05, 2021 13:11
[2021-10-05 16:00] VITALS: BP 161/78
[2021-10-05] MEDS: VANCOMYCIN 125 MG CAPSULE PO SCH ×2 (17:14→23:50)
[2021-10-05 19:36] VITALS: BP 173/81
[2021-10-05] MEDS: IBUPROFEN TABLET 200 MG TAB PO SCH ×2 (20:09→23:56)
[2021-10-05] MEDS ORDERED: PANTOPRAZOLE 40 MG (PROTONIX) TAB PO SCH (21:00)
[2021-10-05] MEDS ORDERED: AMITRIPTYLINE 150 MG (ELAVIL) TABLET PO SCH (21:00)
[2021-10-05 23:59] VITALS: BP 118/70
[2021-10-06] MEDS: NS IV 1000 ML 1,000 ML IV SCH (02:37)
[2021-10-06 04:00] VITALS: BP 112/60
[2021-10-06] MEDS: VANCOMYCIN 125 MG CAPSULE PO SCH ×2 (05:50→12:19)
[2021-10-06] MEDS ORDERED: TROSPIUM 20 MG (SANCTURA) TAB PO SCH (06:00)
[2021-10-06 06:24] LABS: BASOPHILS % (AUTO) 0 % (0-10); EOSINOPHILS # (AUTO) 0.3 10^3/uL (0.0-0.3); EOSINOPHILS % (AUTO) 9 % (0-10); HEMATOCRIT 32 % (35-52); LYMPHOCYTES # (AUTO) 0.4 10^3/uL (1.0-4.0); LYMPHOCYTES % (AUTO) 12 % (12-44); MEAN CORPUSCULAR HEMOGLOBIN 31 pg (25-34); MEAN CORPUSCULAR HGB CONC 35 g/dL (32-36); MEAN CORPUSCULAR VOLUME 91 fL (80-99); MEAN PLATELET VOLUME 9.6 fL (9.0-12.2); MONOCYTES # (AUTO) 0.4 10^3/uL (0.0-1.0); MONOCYTES % (AUTO) 14 % (0-12); NEUTROPHILS # (AUTO) 1.9 10^3/uL (1.8-7.8); NEUTROPHILS % (AUTO) 64 % (42-75); PLATELET COUNT 187 10^3/uL (130-400); WHITE BLOOD COUNT 2.9 10^3/uL (4.3-11.0)
[2021-10-06 06:36] LABS: POTASSIUM 3.8 MMOL/L (3.6-5.0)
[2021-10-06 06:37] LABS: CALCIUM 8.3 MG/DL (8.5-10.1)
[2021-10-06 06:42] LABS: CREATININE SERUM 0.65 MG/DL (0.60-1.30)
[2021-10-06 08:00] VITALS: BP 146/82
[2021-10-06] MEDS ORDERED: NITROFURANTOIN 50 MG (MACRODANTIN) CAP PO SCH (09:00)
[2021-10-06] MEDS ORDERED: [UNRECOGNIZED DRUG - OTHER] PO SCH (09:00)
[2021-10-06] MEDS: IBUPROFEN TABLET 200 MG TAB PO SCH (09:02)
[2021-10-06 11:12] VITALS: BP 141/75
[2021-10-06] MEDS ORDERED: KCL 20 MEQ TAB (K-DUR) PO SCH (12:00)
[2021-10-06] MEDS ORDERED: VANC125C5 PO (12:40)
--- NOTE | 2021-10-06 12:41 | Discharge Inst-Simple/Standard ---
Discharge Inst-Standard Discharge Medications New, Converted or Re-Newed RX: Transmitted to Pharmacy Patient Instructions/Follow Up Plan of Care/Instructions/FU: Please continue to take your medications as written. Please follow up with your primary care doctor to follow up this hospital stay. Activity as Tolerated: Yes Discharge Diet: No Restrictions Return to The Hospital For: Chest pain, abd pain, worsening diarrhea, shortness of breath, fever, weakness, if you feel you are getting worse. GABO CHAPPELL MD Oct 06, 2021 12:41
--- NOTE | 2021-10-06 12:43 | Discharge Summary ---
Diagnosis/Chief Complaint Date of Admission Oct 05, 2021 at 11:10 Date of Discharge Discharge Date: Oct 06, 2021 Admission Diagnosis c diff colitis Primary Care Robert Live MD Discharge Diagnosis (1) C. difficile enteritis Status: Acute (2) Multiple sclerosis Status: Acute Discharge Summary Discharge Physical Exam Allergies: Coded Allergies: fentanyl (Verified Allergy, Intermediate, 10/09/12) Sulfa (Sulfonamide Antibiotics) (Unverified Allergy, Unknown, 09/04/09) pregabalin (Verified Allergy, Unknown, MS ATTACK, 03/20/17) quetiapine (Verified Allergy, Unknown, 07/29/05) Vitals & I&Os Vital Signs Date Time Temp Pulse Resp B/P (MAP) Pulse Ox O2 Delivery O2 Flow Rate FiO2 10/06/21 11:12 36.5 90 20 141/75 (97) 99 Room Air General Appearance: No Apparent Distress, Chronically ill Respiratory: Lungs Clear, No Respiratory Distress Cardiovascular: Regular Rate, Rhythm, No Murmur Gastrointestinal: Normal Bowel Sounds, Soft Neurologic/Psychiatric: Alert, Oriented x3 Hospital Course Patient was admitted to the hospital secondary to C. difficile colitis. She was observed overnight due to her multiple sclerosis and fragile medical status. She was treated with IV fluids and oral vancomycin. She did very well and was able to tolerate a diet. She had no further bowel movements while admitted. She was discharged home in stable and improved condition to follow-up with her primary care doctor, Dr. Live. Labs (last 24 hrs) Laboratory Tests 10/06/21 05:40: White Blood Count 2.9L, Red Blood Count 3.52L, Hemoglobin 11.0L, Hematocrit 32L, Mean Corpuscular Volume 91, Mean Corpuscular Hemoglobin 31, Mean Corpuscular Hemoglobin Concent 35, Red Cell Distribution Width 11.9, Platelet Count 187, Mean Platelet Volume 9.6, Immature Granulocyte % (Auto) 0, Neutrophils (%) (Aut o) 64, Lymphocytes (%) (Auto) 12, Monocytes (%) (Auto) 14H, Eosinophils (%) (Auto) 9, Basophils (%) (Auto) 0, Neutrophils # (Auto) 1.9, Lymphocytes # (Auto) 0.4L, Monocytes # (Auto) 0.4, Eosinophils # (Auto) 0.3, Basophils # (Auto) 0.0, Immature Granulocyte # (Auto) 0.0, Sodium Level 141, Potassium Level 3.8, Chloride Level 112H, Carbon Dioxide Level 20L, Anion Gap 9, Blood Urea Nitrogen 11, Creatinine 0.65, Estimat Glomerular Filtration Rate 102, BUN/Creatinine Ratio 17, Glucose Level 92, Calcium Level 8.3L Microbiology 10/05/21 C. difficile GDH Antigen & Toxins - Final, Complete 10/05/21 Stool Culture - Final, Complete Patient resulted labs reviewed. Pending Labs Laboratory Tests 10/06/21 05:40: White Blood Count 2.9, Red Blood Count 3.52, Hemoglobin 11.0, Hematocrit 32, Mean Corpuscular Volume 91, Mean Corpuscular Hemoglobin 31, Mean Corpuscular Hemoglobin Concent 35, Red Cell Distribution Width 11.9, Platelet Count 187, Mean Platelet Volume 9.6, Immature Granulocyte % (Auto) 0, Neutrophils (%) (Auto) 64, Lymphocytes (%) (Auto) 12, Monocytes (%) (Auto) 14, Eosinophils (%) (Auto) 9, Basophils (%) (Auto) 0, Neutrophils # (Auto) 1.9, Lymphocytes # (Auto) 0.4, Monocytes # (Auto) 0.4, Eosinophils # (Auto) 0.3, Basophils # (Auto) 0.0, Immature Granulocyte # (Auto) 0.0, Sodium Level 141, Potassium Level 3.8, Chloride Level 112, Carbon Dioxide Level 20, Anion Gap 9, Blood Urea Nitrogen 11, Creatinine 0.65, Estimat Glomerular Filtration Rate 102, BUN/Creatinine Ratio 17, Glucose Level 92, Calcium Level 8.3 Discussion & Recommendations Discharge Planning: >30 minutes discharge planning Discharge Home Medications: Active Scripts Active Vancomycin HCl 125 Mg Capsule 125 Mg PO Q6HR Reported Advil (Ibuprofen) 200 Mg Tablet 600 Mg PO BID Amitriptyline HCl 10 Mg Tablet 40 Mg PO HS Vesicare (Solifenacin Succinate) 10 Mg Tablet 10 Mg PO DAILY 1200 Potassium Chloride 20 Meq Tab.er.prt 20 Meq PO DAILY 1200 Protonix (Pantoprazole Sodium) 40 Mg Tablet.dr 40 Mg PO DAILY Macrodantin (Nitrofurantoin Macrocrystal) 100 Mg Capsule 100 Mg PO EVERY OTHER DAY Amitriptyline HCl 100 Mg Tablet 200 Mg PO HS take with 40mg po to make total dose 240mg Vitamin D (Cholecalciferol) 2,000 Unit Capsule 2,000 Unit PO DAILY Vitamin C 500 Mg (Ascorbic Acid) 500 Mg Tablet 1,000 Mg PO QID Gilenya (Fingolimod Hydrochloride) 0.5 Mg Capsule 0.5 Mg PO DAILY Calcium 600 + D Caplet (Calcium Carbonate/Vitamin D3) 1 Each Tablet 1 Tab PO HS Multiple Vitamin (Multivitamins) 1 Tab Tablet 1 Tab PO DAILY Instructions to patient/family Please see electronic discharge instructions given to patient. GABO CHAPPELL MD Oct 06, 2021 12:43
[2021-10-06 13:13] VITALS: BP 141/75
== END 2021-10-06 13:13 | disposition home or self-care (01) ==
LOC: EDUNIT# 08:17 → ER 08:20 → 4TH 11:10
PROVIDERS: ADMIT Family Medicine; ATTEND Family Medicine
DX: A04.72 Enterocolitis due to Clostridium difficile, not specified as recurrent (principal); G35 Multiple sclerosis; E86.0 Dehydration; R13.10 Dysphagia, unspecified; R47.02 Dysphasia
CPT/HCPCS: 80048; 80053; 81000; 85007; 85025; 85027; 87015; 87046; 87088; 87324; 87328; 87449; 87899; 96361 ×2; 97162; 99284; G0378; 36415

== ENCOUNTER 2021-10-26 21:46 | Emergency (ER) | payer OTHER ==
[~2021-10-26] VITALS: Ht 167.7 cm; Wt 68.4 kg
[~2021-10-26 21:46] MED LIST changes: +AMT10T PO; +IBUP-30 PO; +NITR-68 PO; +PANT40TA2 PO; +POTA-179 PO; +SOLI10TA2 PO; +VANC125C5 PO
--- NOTE | 2021-10-27 01:04 | ED Respiratory ---
General Chief Complaint: Respiratory Problems Stated Complaint: TROUBLE BREATHING,CHOKED ON MEDICATION Nursing Triage Note: PT ARRIVAL TO ER VIA WHEELCHAIR WITH COMPLAINT OF FEELING SOA AFTER CHOKING ON AN AMYTRIPTILINE PILL AT HOME. PT FEELS THAT IT DID GO DOWN, BUT WORRIES ABOUT CHOKING OR DYING FROM THIS. PT HAS HX OF CHOKING ON SAME MEDICATION WITH ASPIRATION IN THE PAST. PT HAS GOOD VITALS AND SPOUSE STATES THAT REASSURANCE FROM PROVIDER WOULD HELP. PT HAS NO OTHER COMPLAINTS. Allergies and Home Medications Allergies Coded Allergies: fentanyl (Verified Allergy, Intermediate, 10/09/12) Sulfa (Sulfonamide Antibiotics) (Unverified Allergy, Unknown, 09/04/09) pregabalin (Verified Allergy, Unknown, MS ATTACK, 03/20/17) quetiapine (Verified Allergy, Unknown, 07/29/05) Patient Home Medication List Amitriptyline HCl (Amitriptyline HCl) 100 Mg Tablet, 200 MG PO HS, (Reported) Entered as Reported by: LANDEN SUN on 06/22/17 0012 Amitriptyline HCl (Amitriptyline HCl) 10 Mg Tablet, 40 MG PO HS, (Reported) Entered as Reported by: FAISAL TIJERINA on 10/05/21 1308 Ascorbic Acid (Vitamin C 500 Mg) 500 Mg Tablet, 1,000 MG PO QID, (Reported) Entered as Reported by: ISA CHURCH on 05/05/11 1034 Calcium Carbonate/Vitamin D3 (Calcium 600 + D Caplet) 1 Each Tablet, 1 TAB PO HS, (Reported) Entered as Reported by: ODETTE CHAVES on 09/04/09 194 Cholecalciferol (Vitamin D) 2,000 Unit Capsule, 2,000 UNIT PO DAILY, (Reported) Entered as Reported by: ISA CHURCH on 05/05/11 1036 Fingolimod Hydrochloride (Gilenya) 0.5 Mg Capsule, 0.5 MG PO DAILY, (Reported) Entered as Reported by: ISA CHURCH on 05/05/11 1034 Ibuprofen (Advil) 200 Mg Tablet, 600 MG PO BID, (Reported) Entered as Reported by: FAISAL TIJERINA on 10/05/21 1308 Multivitamins (Multiple Vitamin) 1 Tab Tablet, 1 TAB PO DAILY, (Reported) Entered as Reported by: ODETTE CHAVES on 09/04/09 1935 Nitrofurantoin Macrocrystal (Macrodantin) 100 Mg Capsule, 100 MG PO every other day, (Reported) Entered as Reported by: FAISAL TIJERINA on 10/05/21 1308 Pantoprazole Sodium (Protonix) 40 Mg Tablet.dr, 40 MG PO DAILY, (Reported) Entered as Reported by: FAISAL TIJERINA on 10/05/21 1308 Potassium Chloride (Potassium Chloride) 20 Meq Tab.er.prt, 20 MEQ PO daily 1200, (Reported) Entered as Reported by: FAISAL TIJERINA on 10/05/21 1308 Solifenacin Succinate (Vesicare) 10 Mg Tablet, 10 MG PO daily 1200, (Reported) Entered as Reported by: FAISAL TIJERINA on 10/05/21 1308 Vancomycin HCl (Vancomycin HCl) 125 Mg Capsule, 125 MG PO Q6HR Prescribed by: GABO CHAPPELL on 10/06/21 1240 Past Falggzl-[id number]-Cccwcq Hx Patient Social History Tobacco Use?: No Use of E-Cig and/or Vaping dev: No Substance use?: No Alcohol Use?: No Pt feels they are or have been: No Immunizations Up To Date Influenza Vaccine Up-to-Date: Yes; Up-to-Date First/Initial COVID19 Vaccinat: 07/06/20 Second COVID19 Vaccination Chris: 08/10/20 Third COVID19 Vaccination Date: 03/07/21 Seasonal Allergies Seasonal Allergies: No Past Medical History Surgeries: Yes (SUPRAPUBIC CATHETER) Respiratory: No Cardiac: No Neurological: Yes Multiple Sclerosis Reproductive Disorders: No [employer]ATOR History: Hysterectomy Sexually Transmitted Disease: No UTI-Chronic Gastrointestinal: No Musculoskeletal: No Endocrine: No HEENT: No Cancer: Yes Breast Psychosocial: Yes Bipolar Integumentary: No Blood Disorders: No Family Medical History No Pertinent Family Hx Physical Exam Vital Signs - First Documented 10/27/21 00:02 Temp 36.7 Pulse 89 Resp 20 B/P (MAP) 126/77 (93) Pulse Ox 96 O2 Delivery Room Air Capillary Refill : Less Than 3 Seconds Height: 5'6" Weight: 165lbs. 0.0oz. 74.548810tn; 24.00 BMI Method:Stated Progress/Results/Core Measures Suspected Sepsis SIRS Temperature: Pulse: 89 Respiratory Rate: 20 Blood Pressure 126 /77 Mean: 93 Results/Orders Vital Signs/I&O 6/26/22 6/26/22 00:02 00:02 Temp 36.7 Pulse 89 Resp 20 B/P (MAP) 126/77 (93) Pulse Ox 96 O2 Delivery Room Air Room Air Capillary Refill : Less Than 3 Seconds Blood Pressure Mean: 93 Departure Impression Primary Impression: CHOKING EPISODE ON A PILL Additional Impressions: Multiple sclerosis CHRONIC DYSPHAGIA Disposition: 01 HOME, SELF-CARE Condition: Improved Departure-Patient Inst. Decision time for Depature: 01:04 Referrals: VIVIAN CAMARA MD (PCP/Family) Primary Care Physician Patient Instructions: Choking, Dysphagia (DC), Multiple Sclerosis, Adult (DC) Add. Discharge Instructions: RETURN TO ER IF PROBLEMS WORSEN All discharge instructions reviewed with patient and/or family. Voiced understanding. TIMOTHY KING DO Oct 27, 2021 01:04
[2021-10-27 01:12] VITALS: BP 118/86
== END 2021-10-27 01:19 | disposition home or self-care (01) ==
LOC: EDUNIT# 21:46 → ER 21:47
DX: T17.990A Other foreign object in respiratory tract, part unspecified in causing asphyxiation, initial encounter (principal); G35 Multiple sclerosis; W45.8XXA Other foreign body or object entering through skin, initial encounter
CPT/HCPCS: 99282

== ENCOUNTER → 2022-03-20 | Outpatient (CLI) | payer OTHER ==
[2022-03-20 09:22] LABS: BASOPHILS % (AUTO) 1 % (0-10); EOSINOPHILS # (AUTO) 0.2 10^3/uL (0.0-0.3); EOSINOPHILS % (AUTO) 5 % (0-10); HEMATOCRIT 38 % (35-52); LYMPHOCYTES # (AUTO) 0.3 10^3/uL (1.0-4.0); LYMPHOCYTES % (AUTO) 8 % (12-44); MEAN CORPUSCULAR HEMOGLOBIN 32 pg (25-34); MEAN CORPUSCULAR HGB CONC 34 g/dL (32-36); MEAN CORPUSCULAR VOLUME 92 fL (80-99); MEAN PLATELET VOLUME 9.2 fL (9.0-12.2); MONOCYTES # (AUTO) 0.6 10^3/uL (0.0-1.0); MONOCYTES % (AUTO) 16 % (0-12); NEUTROPHILS # (AUTO) 2.5 10^3/uL (1.8-7.8); NEUTROPHILS % (AUTO) 71 % (42-75); PLATELET COUNT 205 10^3/uL (130-400); WHITE BLOOD COUNT 3.6 10^3/uL (4.3-11.0)
[2022-03-20 09:41] LABS: ALBUMIN 4.2 GM/DL (3.2-4.5); BILIRUBIN,TOTAL 0.4 MG/DL (0.1-1.0); CALCIUM 9.5 MG/DL (8.5-10.1); CREATININE SERUM 0.7 MG/DL (0.60-1.30); POTASSIUM 3.8 MMOL/L (3.6-5.0); TOTAL PROTEIN 7.3 GM/DL (6.4-8.2)
== END ==
LOC: ONC 09:00
PROVIDERS: ATTEND Internal Medicine Hematology & Oncology
DX: C50.911 Malignant neoplasm of unspecified site of right female breast (principal); N31.9 Neuromuscular dysfunction of bladder, unspecified; I10 Essential (primary) hypertension; Z92.21 Personal history of antineoplastic chemotherapy; Z90.11 Acquired absence of right breast and nipple
CPT/HCPCS: 80053; 85025; G0463; 36415; 99213

== ENCOUNTER 2022-04-07 09:10 | Outpatient (RCR) | payer OTHER ==
[2022-04-07 09:34] LABS: BASOPHILS % (AUTO) 1 % (0-10); EOSINOPHILS # (AUTO) 0.2 10^3/uL (0.0-0.3); EOSINOPHILS % (AUTO) 5 % (0-10); HEMATOCRIT 40 % (35-52); HEMOGLOBIN 13.7 g/dL (11.5-16.0); LYMPHOCYTES # (AUTO) 0.5 10^3/uL (1.0-4.0); LYMPHOCYTES % (AUTO) 12 % (12-44); MEAN CORPUSCULAR HEMOGLOBIN 31 pg (25-34); MEAN CORPUSCULAR HGB CONC 34 g/dL (32-36); MEAN CORPUSCULAR VOLUME 91 fL (80-99); MEAN PLATELET VOLUME 9.1 fL (9.0-12.2); MONOCYTES # (AUTO) 0.6 10^3/uL (0.0-1.0); MONOCYTES % (AUTO) 15 % (0-12); NEUTROPHILS # (AUTO) 2.5 10^3/uL (1.8-7.8); NEUTROPHILS % (AUTO) 68 % (42-75); PLATELET COUNT 292 10^3/uL (130-400); WHITE BLOOD COUNT 3.7 10^3/uL (4.3-11.0)
[2022-04-07 09:58] LABS: ALBUMIN 4.5 GM/DL (3.2-4.5); BILIRUBIN,TOTAL 0.5 MG/DL (0.1-1.0); CALCIUM 10.2 MG/DL (8.5-10.1); CREATININE SERUM 0.72 MG/DL (0.60-1.30); POTASSIUM 3.9 MMOL/L (3.6-5.0); TOTAL PROTEIN 7.7 GM/DL (6.4-8.2)
== END 2022-05-03 | disposition home or self-care (01) ==
LOC: ONC 09:10
PROVIDERS: ATTEND Internal Medicine Hematology & Oncology
DX: C50.919 Malignant neoplasm of unspecified site of unspecified female breast (principal); N31.9 Neuromuscular dysfunction of bladder, unspecified; G35 Multiple sclerosis; D72.819 Decreased white blood cell count, unspecified; K21.9 Gastro-esophageal reflux disease without esophagitis; I10 Essential (primary) hypertension; R94.5 Abnormal results of liver function studies; Z90.10 Acquired absence of unspecified breast and nipple; Z92.21 Personal history of antineoplastic chemotherapy; Z92.3 Personal history of irradiation; Z90.710 Acquired absence of both cervix and uterus; Z90.722 Acquired absence of ovaries, bilateral
CPT/HCPCS: 36415; 80053; 85025

== ENCOUNTER → 2022-09-12 | Outpatient (CLI) | payer OTHER ==
--- NOTE | 2022-09-12 14:28 | Diagnostic Imaging Report ---
Indication: Routine screening. Comparison is made with prior mammogram from 09/09/2021 and 09/06/2020. 2-D and 3-D bilateral screening mammography was performed with CAD. CAD is utilized. The current study was also evaluated with a Computer Aided Detection (CAD) system. Both breasts are heterogeneously dense, limiting the sensitivity of mammography. There appears to be asymmetry in breast size, right being smaller. There are benign calcifications bilaterally. No mass or malignant-appearing microcalcifications are seen. Axillae are unremarkable. IMPRESSION: BI-RADS Category 2 No mammographic features suspicious for malignancy are identified. ACR BI-RADS Category 2: Benign findings. Result letter will be mailed to the patient. Note: At least 10% of breast cancer is not imaged by mammography. Dictated by: Dictated on workstation # [id number]
== END ==
LOC: RAD 08:36
PROVIDERS: ATTEND Internal Medicine Hematology & Oncology
DX: Z12.31 Encounter for screening mammogram for malignant neoplasm of breast (principal)
CPT/HCPCS: 77063; 77067

== ENCOUNTER 2022-09-19 09:29 | Outpatient (RCR) | payer OTHER ==
[2022-09-19 09:54] LABS: BASOPHILS % (AUTO) 1 % (0-10); EOSINOPHILS # (AUTO) 0.3 10^3/uL (0.0-0.3); EOSINOPHILS % (AUTO) 8 % (0-10); HEMATOCRIT 38 % (35-52); HEMOGLOBIN 12.9 g/dL (11.5-16.0); LYMPHOCYTES # (AUTO) 0.4 10^3/uL (1.0-4.0); LYMPHOCYTES % (AUTO) 13 % (12-44); MEAN CORPUSCULAR HEMOGLOBIN 31 pg (25-34); MEAN CORPUSCULAR HGB CONC 34 g/dL (32-36); MEAN CORPUSCULAR VOLUME 91 fL (80-99); MEAN PLATELET VOLUME 9.5 fL (9.0-12.2); MONOCYTES # (AUTO) 0.5 10^3/uL (0.0-1.0); MONOCYTES % (AUTO) 15 % (0-12); NEUTROPHILS % (AUTO) 63 % (42-75); PLATELET COUNT 223 10^3/uL (130-400); WHITE BLOOD COUNT 3.2 10^3/uL (4.3-11.0)
[2022-09-19 10:13] LABS: ALBUMIN 4.1 GM/DL (3.2-4.5); BILIRUBIN,TOTAL 0.3 MG/DL (0.1-1.0); CALCIUM 9.4 MG/DL (8.5-10.1); CREATININE SERUM 0.82 MG/DL (0.60-1.30); POTASSIUM 4.2 MMOL/L (3.6-5.0); TOTAL PROTEIN 7.3 GM/DL (6.4-8.2)
== END 2022-10-01 | disposition home or self-care (01) ==
LOC: ONC 09:29
PROVIDERS: ATTEND Internal Medicine Hematology & Oncology
DX: C50.919 Malignant neoplasm of unspecified site of unspecified female breast (principal); N31.9 Neuromuscular dysfunction of bladder, unspecified; G35 Multiple sclerosis; D72.819 Decreased white blood cell count, unspecified; I10 Essential (primary) hypertension; R94.5 Abnormal results of liver function studies; Z90.10 Acquired absence of unspecified breast and nipple; Z92.21 Personal history of antineoplastic chemotherapy; Z92.3 Personal history of irradiation; Z90.710 Acquired absence of both cervix and uterus; Z90.722 Acquired absence of ovaries, bilateral
CPT/HCPCS: 36415; 80053; 85025

== ENCOUNTER → 2022-10-24 | Outpatient (CLI) | payer OTHER ==
[~2022-10-24] MED LIST changes: +CATHETER FLUSH 10 ML SYR IV PRN; +HOLD METFORMIN - RECEIVED CONTRAST 20 ML VIAL IV SCH; +IOHEXOL 350 MG/ML 100 ML (OMNIPAQUE 350) VIAL IV ONE; +NS 100 ML (IVPB) BAG IV ONE
--- NOTE | 2022-10-24 12:41 | Diagnostic Imaging Report ---
PROCEDURE: CT chest, abdomen, and pelvis with contrast. TECHNIQUE: Multiple contiguous axial images were obtained through the chest, abdomen, and pelvis after the administration of intravenous contrast. Auto Exposure Controls were utilized during the CT exam to meet ALARA standards for radiation dose reduction. INDICATION: Breast carcinoma with elevated liver enzymes. Patient status post right lumpectomy as well as has had prior hysterectomy. Comparison is made with prior CT chest from 03/20/[address] abdomen and pelvis from 08/30/2021. CT CHEST: Previously noted chronic fluid collection along the inferior aspect of the right breast appears stable at 2.1 x 1.1 cm. No axillary lymphadenopathy is detected. No definite mediastinal or hilar lymphadenopathy is detected. No pericardial or pleural fluid is detected. There is a large hiatal hernia present. There are areas of scarring versus atelectasis bilateral upper lobes. No pulmonary nodule or mass is detected. CT ABDOMEN AND PELVIS: Low-attenuation throughout the liver is noted consistent with hepatic steatosis. No discrete liver mass is detected. Gallbladder is unremarkable. No biliary duct dilatation is seen. Pancreas and spleen are unremarkable. No adrenal mass is identified. Kidneys are unremarkable. Aorta is nonaneurysmal. No central retroperitoneal or mesenteric lymphadenopathy is identified. There is a large stool load throughout the colon. There is no ascites. No inflammatory changes are seen. No pelvic lymphadenopathy is detected. Uterus is surgically absent. Patient has a suprapubic catheter in place. Bladder appears to be completely decompressed. The bony structures are nonacute. No definite osteolytic or blastic lesions are seen. IMPRESSION: 1. No evidence of a thoracic, abdominal or pelvic lymphadenopathy or metastatic disease. 2. Large hiatal hernia. 3. Hepatic steatosis. 4. A large stool lobe throughout the colon, correlate for constipation. Dictated by: Dictated on workstation # [id number]
== END ==
LOC: RAD 11:34
PROVIDERS: ATTEND Internal Medicine Hematology & Oncology
DX: C50.919 Malignant neoplasm of unspecified site of unspecified female breast (principal); K44.9 Diaphragmatic hernia without obstruction or gangrene; K76.0 Fatty (change of) liver, not elsewhere classified; Z90.11 Acquired absence of right breast and nipple; Z90.710 Acquired absence of both cervix and uterus
CPT/HCPCS: 71260; 74177

== ENCOUNTER 2022-10-29 09:03 | Outpatient (RCR) | payer OTHER ==
[2022-10-17 09:40] LABS: BASOPHILS % (AUTO) 1 % (0-10); EOSINOPHILS # (AUTO) 0.2 10^3/uL (0.0-0.3); EOSINOPHILS % (AUTO) 8 % (0-10); HEMATOCRIT 40 % (35-52); HEMOGLOBIN 13.5 g/dL (11.5-16.0); LYMPHOCYTES # (AUTO) 0.4 10^3/uL (1.0-4.0); LYMPHOCYTES % (AUTO) 13 % (12-44); MEAN CORPUSCULAR HEMOGLOBIN 31 pg (25-34); MEAN CORPUSCULAR HGB CONC 34 g/dL (32-36); MEAN CORPUSCULAR VOLUME 93 fL (80-99); MEAN PLATELET VOLUME 9.5 fL (9.0-12.2); MONOCYTES # (AUTO) 0.4 10^3/uL (0.0-1.0); MONOCYTES % (AUTO) 14 % (0-12); NEUTROPHILS # (AUTO) 1.8 10^3/uL (1.8-7.8); NEUTROPHILS % (AUTO) 63 % (42-75); PLATELET COUNT 222 10^3/uL (130-400); WHITE BLOOD COUNT 2.9 10^3/uL (4.3-11.0)
[2022-10-17 09:46] LABS: ALBUMIN 4.2 GM/DL (3.2-4.5); POTASSIUM 3.8 MMOL/L (3.6-5.0)
[2022-10-17 09:47] LABS: CALCIUM 9.7 MG/DL (8.5-10.1)
[2022-10-17 09:48] LABS: TOTAL PROTEIN 7.2 GM/DL (6.4-8.2)
[2022-10-17 09:50] LABS: BILIRUBIN,TOTAL 0.3 MG/DL (0.1-1.0)
[2022-10-17 09:52] LABS: CREATININE SERUM 0.73 MG/DL (0.60-1.30)
[~2022-10-29 09:03] MED LIST changes: -CATHETER FLUSH 10 ML SYR IV PRN; -HOLD METFORMIN - RECEIVED CONTRAST 20 ML VIAL IV SCH; -IOHEXOL 350 MG/ML 100 ML (OMNIPAQUE 350) VIAL IV ONE; -NS 100 ML (IVPB) BAG IV ONE
== END 2022-10-31 | disposition home or self-care (01) ==
LOC: ONC 09:03
PROVIDERS: ATTEND Internal Medicine Hematology & Oncology
DX: C50.919 Malignant neoplasm of unspecified site of unspecified female breast (principal); N31.9 Neuromuscular dysfunction of bladder, unspecified; G35 Multiple sclerosis; D72.819 Decreased white blood cell count, unspecified; I10 Essential (primary) hypertension; R94.5 Abnormal results of liver function studies; Z90.10 Acquired absence of unspecified breast and nipple; Z92.21 Personal history of antineoplastic chemotherapy; Z92.3 Personal history of irradiation; Z90.710 Acquired absence of both cervix and uterus; Z90.722 Acquired absence of ovaries, bilateral
CPT/HCPCS: 36415; 80053; 85025

== ENCOUNTER 2023-03-20 08:58 | Outpatient (RCR) | payer OTHER ==
[2023-03-20 09:20] LABS: BASOPHILS % (AUTO) 1 % (0-10); EOSINOPHILS # (AUTO) 0.3 10^3/uL (0.0-0.3); EOSINOPHILS % (AUTO) 10 % (0-10); HEMATOCRIT 39 % (35-52); HEMOGLOBIN 13.2 g/dL (11.5-16.0); LYMPHOCYTES # (AUTO) 0.4 10^3/uL (1.0-4.0); LYMPHOCYTES % (AUTO) 14 % (12-44); MEAN CORPUSCULAR HEMOGLOBIN 31 pg (25-34); MEAN CORPUSCULAR HGB CONC 34 g/dL (32-36); MEAN CORPUSCULAR VOLUME 92 fL (80-99); MEAN PLATELET VOLUME 9.4 fL (9.0-12.2); MONOCYTES # (AUTO) 0.5 10^3/uL (0.0-1.0); MONOCYTES % (AUTO) 15 % (0-12); NEUTROPHILS # (AUTO) 1.8 10^3/uL (1.8-7.8); NEUTROPHILS % (AUTO) 60 % (42-75); PLATELET COUNT 213 10^3/uL (130-400)
[2023-03-20 09:40] LABS: ALBUMIN 4.4 GM/DL (3.2-4.5); BILIRUBIN,TOTAL 0.5 MG/DL (0.1-1.0); CALCIUM 9.9 MG/DL (8.5-10.1); CREATININE SERUM 0.7 MG/DL (0.60-1.30); POTASSIUM 4.1 MMOL/L (3.6-5.0); TOTAL PROTEIN 7.5 GM/DL (6.4-8.2)
== END 2023-04-02 | disposition home or self-care (01) ==
LOC: ONC 08:58
PROVIDERS: ATTEND Internal Medicine Hematology & Oncology
DX: C50.919 Malignant neoplasm of unspecified site of unspecified female breast (principal); N31.9 Neuromuscular dysfunction of bladder, unspecified; G35 Multiple sclerosis; D72.819 Decreased white blood cell count, unspecified; I10 Essential (primary) hypertension; R94.5 Abnormal results of liver function studies; Z90.10 Acquired absence of unspecified breast and nipple; Z92.21 Personal history of antineoplastic chemotherapy; Z92.3 Personal history of irradiation; Z90.710 Acquired absence of both cervix and uterus; Z90.722 Acquired absence of ovaries, bilateral
CPT/HCPCS: 36415; 80053; 85025

== ENCOUNTER 2023-04-08 05:33 | Outpatient (CLI) | payer OTHER ==
[~2023-04-08] VITALS: Ht 167.6 cm; Wt 70.3 kg
[2023-04-08] MEDS ORDERED: OMEG1CAP58 PO (12:14)
[2023-04-08] MEDS ORDERED: AMIT150T PO (12:14)
[2023-04-08] MEDS ORDERED: CHOL200078 PO (12:14)
[2023-04-08] MEDS ORDERED: CRAN400T3 PO (12:14)
[2023-04-08] MEDS ORDERED: ASCO500T7 PO (12:14)
[2023-04-08] MEDS ORDERED: VIT1CAPS14 PO (12:14)
[2023-04-08] MEDS ORDERED: POLY119P5 PO (12:14)
[2023-04-08] MEDS ORDERED: CALC600T91 PO (12:14)
[2023-04-08] MEDS ORDERED: MULT-567 PO (12:14)
[2023-04-08] MEDS ORDERED: [UNRECOGNIZED DRUG - CODE] PO (12:14)
== END 2023-04-08 12:17 | disposition home or self-care (01) ==
LOC: PREOP 05:33
PROVIDERS: ATTEND Surgery
DX: Z01.818 Encounter for other preprocedural examination (principal)